=== PATIENT | male | born 1950 | race Caucasian/White ===

== ENCOUNTER 2016-04-11 09:50 | Outpatient (CLI) | payer MEDICARE ==
[~2016-04-11] VITALS: Ht 190.5 cm; Wt 105.5 kg
--- NOTE | ~2016-04-11 | HEMODYNAMI ---
PATIENT:JOSÉ MIGUEL SMITH MEDICAL RECORD: [id number] : 46 LOCATION:[facility] ADMISSION DATE: 04/11/16 Generatedon:04/11/201613:32 Patient name: JOSÉ MIGUEL SMITH Patient #: [id number] : 1950 Date of study: 04/11/2016 Page: Of Hemodynamic Procedure Report Patient Data Patient Demographics Procedure consent was obtained First Name: JOSÉ MIGUEL Gender: Male Last Name: LUIS : 1950 Patient #: [id number] Age: 65 year(s) Race: SSN: [id number] Additional ID: [id number] Contact details [address]: [address] [place] [address] State: [place] City: [place] Zip code: [address] Admission Admission Data Admission Date: 04/11/2016 Admission Time: 9:50 Arrival Date: 04/11/2016 Arrival Time: 12:00 Admit Source: Other Insurance Payor: Medicare Height (in.): 63 BSA: 2.07 (m2) Height (cm.): 160.02 BMI: 41.81 (kg/m2) Weight (lbs.): 236 Weight (kg.): 107.05 Lab Results Lab Result Date: 04/11/2016 Lab Result Time: 0:00 Biochemistry Name Units Result Min Max BUN mg/dl 19 --(----)*- 7 18 Creatinine mg/dl 0.9 --(-*--)-- 0.6 1.3 CBC Name Units Result Min Max Hemoglobin g/dl 14.8 --(-*--)-- 13.5 17.5 Procedure Procedure Types Cath Procedure Diagnostic Procedure LHC LHC w/Coronaries w/Grafts PCI Procedure Coronary Stent Initial Miscellaneous Procedures Moderate Sedation up to 15 minutes Procedure Description Procedure Date Procedure Date: 04/11/2016 Procedure Start Time: 13:10 Procedure End Time: 13:29 Procedure Staff Name Function Shelby Jacobs RT Monitor Rajiv Herrera RT Scrub Ally Stout RN Nurse Sander Tinajero MD Performing Physician Frida Simmons RT Monitor Procedure Data Cath Procedure Fluoroscopy Diagnostic fluoroscopy Total fluoroscopy Time: 5 time: 5 min min Diagnostic fluoroscopy Total fluoroscopy dose: 951 dose: 951 mGy mGy Contrast Material Contrast Material Type Amount (ml) Isovue 300 155 Entry Location Entry Primary Successful Side Size Upsize Upsize Entry Closure Succes sful Closure Location (Fr) 1 (Fr) 2 (Fr) Remarks Device Remarks Femoral Right 5 Fr 6 Fr Vascade artery Short Closure System Estimated blood loss: 10 ml Diagnostic catheters Device Type Used For End Catheter Placement Cordis 5Fr Pigtail LV Angiography Catheter (MP) Cordis 5Fr JL 4.0 Left Coronary Catheter (MP) Angiography Cordis 5Fr 3DRC Catheter Right Coronary (MP) Angiography Cordis Infinity 5Fr AR 2 Multi-vessel MOD catheter Angiography Procedure Complications No complications Procedure Medications Medication Administration Route Dosage Oxygen NC 2 l/min Lidocaine 2% added to field 20 Heparin Flush Bag added to field 2 bags (1000units/500ml NS) 0.9% NaCl I.V. 100 ml/hr Versed I.V. 1 mg Fentanyl I.V. 50 mcg Versed I.V. 1 mg Fentanyl I.V. 50 mcg Versed I.V. 1 mg Fentanyl I.V. 50 mcg Heparin Bolus I.V. 4000 units Integrilin (Bolus I.V. 9.5 ml 2mg/ml) Plavix P.O. 600 mg Hemodynamics Rest BSA: 2.07 (m2) HGB: 14.8 (g/dl) O2 Consumption: Estimated: 229.15 (ml/min) O2 Co nsumption indexed: Estimated:110.7 (ml/min/m) Heart Rate: 55 (bpm) Pressure Samples Time Site Value (mmHg) Purpose Heart Use Rate(bpm) 13:12 LV 49/22,26 Snapshot 85 Snapshots Pre Cath Intra NCS Post Cath Vital Signs Time Heart Resp SPO2 etCO2 KG1yyrg NIBP (mmHg) Rhythm Pain Sedation Rate (ipm) (%) (mmHg) (mmHg) Status Level (bpm) 12:52:16 55 17 100 0 0 154/79(130) NSR 0 (11) 10(A) , No pain 12:56:30 68 15 94 0 0 123/76(103) NSR 0 (11) 10(A) , No pain 13:00:44 72 15 96 0 0 123/69(95) NSR 0 (11) 10(A) , No pain 13:04:58 73 16 97 0 0 121/69(98) NSR 0 (11) 10(A) , No pain 13:09:10 74 16 96 0 0 124/71(106) NSR 0 (11) 9(A) , No pain 13:13:18 74 15 97 0 0 129/77(96) NSR 0 (11) 9(A) , No pain 13:17:26 84 15 97 0 0 131/80(106) NSR 0 (11) 9(A) , No pain 13:21:40 84 15 96 0 0 121/71(98) NSR 0 (11) 9(A) , No pain 13:25:47 87 15 97 0 0 118/70(99) NSR 0 (11) 10(A) , No pain 13:29:39 88 16 97 0 0 127/78(107) NSR 0 (11) 10(A) , No pain Medications Time Medication Route Dose Verified Delivered Reason Notes Effectiveness by by 12:50:40 Oxygen NC 2 Sander Buffie used for l/min Lior Stout RN procedure 12:50:45 Lidocaine 2% added 20ml Sander Buffie used for to vial Lior Stout RN procedure field 12:50:50 Heparin Flush added 2 Sander Buffie used for Bag to bags Lior Stout RN procedure (1000units/500ml field NS) 12:50:59 0.9% NaCl I.V. 100 Sander Buffie Per physician ml/hr Lior Stout RN 13:00:09 Versed I.V. 1 mg Sander Buffie for sedation Lior Stout RN 13:00:14 Fentanyl I.V. 50 Sander Buffie for sedation mcg Lior Stout RN 13:08:16 Versed I.V. 1 mg Sander Buffie for sedation Lior Stout RN 13:08:19 Fentanyl I.V. 50 Sander Buffie for sedation mcg Lior Stout RN 13:16:38 Versed I.V. 1 mg Sander Buffie for sedation Lior Stout RN 13:16:42 Fentanyl I.V. 50 Sander Buffie for sedation mcg Lior Stout RN 13:22:00 Heparin Bolus I.V. 4000 Sander Canales for verifi ed units Lior Stout RN anticoagulation with dr tinajero 13:23:13 Integrilin I.V. 9.5 Sander Canales for (Bolus 2mg/ml) ml Lior Stout RN antiplatelet therapy 13:28:32 Plavix P.O. 600 Sander rivera mg Lior Stout RN antiplatelet therapy Procedure Log Time Note 12:30:44 ACC Patient presents with Stable Angina CCS Anginal Class 2--Slight limitation of ordinary activity. 12:30:46 Diagnostic Cath status Elective 12:30:48 Rajiv Herrera RT(R) sent for patient. Start room use. 12:34:37 Time tracking: Regular hours 12:34:47 Plan of Care:Hemodynamics will remain stable., Cardiac rhythm will remain stable., Comfort level will be maintained., Respiratory function will remain adequate., Patient/ family verbilizes understanding of procedure., Procedure tolerated without complication., Recovers from procedure without complications.. 12:37:56 Informed consent obtained and on chart 12:38:08 Admit Source: Other 12:38:56 Arrival Date: 04/11/2016 12:00:00 PM 12:39:18 Insurance Payor : Medicare 12:39:27 Patient Height : 63 inches 12:39:32 Patient Weight : 236 lbs 12:43:48 Patient received from Outpatients to CCL 1 Alert and oriented. Tansferred to table in Supine position. 12:43:50 Correct patient and procedure confirmed by team. 12:43:50 Warm blankets applied, and goldy hugger turned on for patient comfort. 12:43:51 ECG and BP/O2 sat monitors applied to patient. 12:50:40 Oxygen 2 l/min NC was given by Ally Stout RN; used for procedure; 12:50:45 Lidocaine 2% 20ml vial added to field was given by Ally Stout RN; used for procedure; 12:50:50 Heparin Flush Bag (1000units/500ml NS) 2 bags added to field was given by Ally Stout RN; used for procedure; 12:50:59 0.9% NaCl 100 ml/hr I.V. was given by Ally Stout RN; Per physician; 12:51:03 Vital chart was started 12:52:41 Baseline sample Acquired. 12:52:45 Rhythm: sinus rhythm 12:52:48 Full Disclosure recording started 12:52:56 H&P Date Dictated: 04/10/2016 Within 30 days and on chart., H&P Addendum completed by physician on day of procedure. (MUST COMPLETE FOR ALL OUTPATIENTS). 12:52:57 Pre-procedure instructions explained to patient. 12:52:58 Pre-procedure instructions explained to patient. 12:52:59 Family in waiting room. 12:53:00 Patient NPO since Midnight. 12:53:29 Is the patient allergic to Iodine/contrast media? No. 12:53:31 Was the patient premedicated? No 12:53:33 Is patient on blood thinner?No 12:53:38 Patient diabetic? No. 12:53:41 Previous problem with sedation/anesthesia? No \ 12:53:43 Snore? No 12:53:44 Sleep apnea? No 12:53:45 Deviated septum? No 12:53:46 Opens mouth fully? Yes 12:53:47 Sticks out tongue? Yes 12:53:49 Airway obstruction? No ? 12:53:55 Dentures? Yes in tight 12:54:00 Pre procedure: right dorsailis pedis pulse 1+ Palpable, but thready & weak; easily obliterated 12:54:06 Patient pain scale 3/10 ?. 12:54:12 IV patent on arrival in left forearm with 0.9% NaCl at [facility]. 12:56:12 Lab Result : Hemoglobin 14.8 g/dl 12:56:12 Lab Result : Creatinine 0.9 mg/dl 12:56:12 Lab Result : BUN 19 mg/dl 12:56:16 Lab results completed and on chart. 12:56:19 Right groin area was prepped with chlora-prep and draped in sterile fashion 12:56:20 Sharps counted by scrub and verified by R.N. 12:56:20 Alarms reviewed by R. N. 12:56:21 Physician arrived 12:56:22 Final Timeout: patient, procedure, and site verified with staff and physician. All members of the team are in agreement. 12:56:22 --------ALL STOP TIME OUT------ 12:56:24 Right groin site verified by team. 12:56:27 Physical assessment completed. ASA score P 2 - A patient with mild systemic disease as per Sander Tinajero MD. 12:56:30 Sedation plan: IV Moderate Sedation Versed, Fentanyl 12:56:34 Use device set Femoral Dx 12:56:36 Cardinal Cath Pack opened to sterile field. 12:56:36 Bag Decanter opened to sterile field. 12:56:36 Acist Syringe opened to sterile field. 12:56:37 Terumo 5Fr [place] Sheath opened to sterile field. 12:56:38 St Gera 260cm J .035 wire opened to sterile field. 12:56:39 Cordis Infinity 5Fr Multipack catheter opened to sterile field. 12:56:39 Acist Manifold opened to sterile field. 12:56:39 Acist Hand Control opened to sterile field. 12:56:40 Tegaderm 4 x 4 opened to sterile field. 13:00:09 Versed 1 mg I.V. was given by Ally Stout RN; for sedation; 13:00:14 Fentanyl 50 mcg I.V. was given by Alyl Stout RN; for sedation; 13:08:16 Versed 1 mg I.V. was given by Ally Stout RN; for sedation; 13:08:19 Fentanyl 50 mcg I.V. was given by Ally Stout RN; for sedation; 13:10:37 Procedure started. 13:10:41 Local anesthetic to right femoral artery with Lidocaine 2% by Sander Tinajero MD.INITIAL ACCESS ONLY 13:10:49 A 5 Fr sheath was inserted into the Right Femoral artery 13:11:13 A Cordis 5Fr Pigtail Catheter (MP) was advanced over the wire and used for LV Angiography. 13:12:03 LV hemodynamics recorded. 13:12:04 LV gram done using LOW 13:12:10 Injector settings: Ml/sec: 5, Volume: 15, 13:12:15 EF : 55 % 13:12:19 Catheter removed. 13:12:23 A Cordis 5Fr JL 4.0 Catheter (MP) was advanced over the wire and used for Left Coronary Angiography. 13:13:33 LCA angiography performed. 13:13:36 Injector settings: Ml/sec: 3, Volume: 6, 13:13:38 Catheter removed. 13:13:42 A Cordis 5Fr 3DRC Catheter (MP) was advanced over the wire and used for Right Coronary Angiography. 13:13:46 RCA angiography performed. 13:13:48 Injector settings: Ml/sec: 3, Volume: 6, 13:13:49 TORREZ angiography performed. 13:13:50 Catheter removed. 13:13:52 Proceeding to intervention. 13:14:10 Fourandhalf BasixCompak Inflation Kit opened to sterile field. 13:14:10 Terumo 6Fr [place] Sheath opened to sterile field. 13:14:11 Lombardi Whisper J 300cm 0.014 guide wire opened to sterile field. 13:16:38 Versed 1 mg I.V. was given by Ally Stout RN; for sedation; 13:16:42 Fentanyl 50 mcg I.V. was given by Ally Stout RN; for sedation; 13:16:56 A Cordis Infinity 5Fr AR 2 MOD catheter was advanced over the wire and used for Multi-vessel Angiography. 13:17:14 SVG to Ramus angiography performed. 13:17:47 SVG to RCA angiography performed. 13:19:58 SVG to Diag angiography performed. 13:20:27 Catheter removed. 13:21:14 Sheath upsized to a 6 Fr Short. 13:21:41 6 Fr ? guide catheter was inserted over the wire 13:22:00 Heparin Bolus 4000 units I.V. was given by Ally Stout RN; for anticoagulation; verified with dr tinajero 13:22:32 Cordis 6FR XBLAD 3.5 guide catheter opened to sterile field. 13:22:54 Whisper wire advanced. 13:23:13 Integrilin (Bolus 2mg/ml) 9.5 ml I.V. was given by Ally Stout RN; for antiplatelet therapy; 13:23:19 Wire advanced across lesion. 13:27:03 Inflation Number: 1 A Medtronic Resolute 3.0 X 22 stent was prepped and advanced across the Prox CX. The stent was deployed at 17 MATT for 0:10 (min:sec). 13:27:08 Vascade 6/7 Fr Closure Device opened to sterile field. 13:27:16 Wire removed. 13:27:17 Guide catheter removed. 13:27:30 Sheath removed intact; hemostasis achieved with Vascade Closure System to the Right Femoral artery. 13:27:32 Procedure ended.(Physican Out) 13:27:46 Fluoroscopy time 05.00 minutes. 13:27:56 Fluoroscopy dose: 951 mGy 13:27:56 Flurop Dose total: 951 13:28:01 Contrast amount:Isovue 300 155ml. 13:28:02 Sharps counted by scrub and verified by R.N. 13:28:07 Insertion/operative site no bleeding no hematoma. 13:28:10 Post Procedure Pulses reassessed and unchanged 13:28:18 Post procedure rhythm: unchanged. 13:28:21 Estimated blood loss: 10 ml 13:28:23 Post procedure instruction explained to patient.Patient verbalizes understanding. 13:28:32 Plavix 600 mg P.O. was given by Ally Stout RN; for antiplatelet therapy; 13:28:47 Procedure type changed to Cath procedure, Diagnostic procedure, LHC, LHC w/Coronaries w/Grafts, PCI procedure, Coronary Stent Initial, Miscellaneous Procedures, Moderate Sedation up to 15 minutes 13:28:50 Procedure and supply charges have been captured, reviewed, submitted and are correct. 13:29:15 Procedure Complication : No complications 13:29:18 See physician's report for complete and final results. 13:29:18 Vital chart was stopped 13:29:21 Report given to Outpatients. 13:29:25 Patient transfered to Outpatients with Stretcher. 13:29:28 Full Disclosure recording stopped 13:29:28 Procedure ended. 13:29:31 End room use (Document Last) 13:30:45 ACC-PCI Only Patient was given prescriptions, or instructed by Sander Tinajero MD to start/continue the following medications upon discharge: Plavix Intervention Summary Intervention Notes Time ActionType Lesion and Equipment Action# Pressure Duration Attributes Used 13:27:03 Place stent Prox CX Medtronic 1 17 00:10 Resolute 3.0 X 22 stent Device Usage Item Name Manufacture Quantity Catalog Hospital Part Current Minima l Lot# / Number Charge Number Stock Stock Serial# Code [facility] 1 [id number] 478680 070305 157558 20 Syringe Medical Systems Inc Bag Microtek 1 2002S 134662 82412 864281 5 Geek[employer] Medline Cardinal 1 [id number] 491494 70601 683643 5 ADMETA Terumo 5Fr Terumo 1 ITH360 825037 907894 110264 [address] Gera 1 762616 077702 130222 327453 30 260cm J .035 wire Acist Hand Acist 1 53621 486177 097713 835545 5 Control Medical Systems Inc Acist Acist 1 36766 621556 560480 190649 5 Manifold Medical Systems Inc Cordis Cardinal 1 [id number] 842933 68587 485801 30 Infinity Health 5Fr Multipack catheter Tegaderm 4 3M 1 1626W 291358 846882 946816 5 x 4 Cordis 5Fr Cardinal 1 732144 5 Pigtail Health Catheter (MP) Cordis 5Fr Cardinal 1 120959 5 JL 4.0 Health Catheter (MP) Cordis 5Fr Cardinal 1 527277 5 3DRC Health Catheter (MP) Terumo 6Fr Terumo 1 QME279 662264 718348 889102 40 [place] Sheath [facility] 1 [id number] 389416 064686 515569 15 BasixCompak Medical Inflation Kit Lombardi Lombardi 1 [id number] 496912 922058 476220 5 Whisper J Vascular 300cm 0.014 guide wire Cordis Cardinal 1 [id number] 008088 115968 810102 20 Infinity Health 5Fr AR 2 MOD catheter Cordis 6FR Cardinal 1 [id number] 074172 642664 238713 10 XBLAD 3.5 Health guide catheter Medtronic Medtronic 1 [id number] 692726 102985 8 [id number] Resolute 3.0 X 22 stent Vascade 6/7 Cardiva 1 [id number] 927104 651501 126081 5 Fr Closure Medical, Device Inc. Signature Audit Early Stage Time Signature Unsigned Intra-Procedure 04/11/2016 Frida Simmons 1:32:39 PM RT(R) Signatures Monitor : Shelby Jacobs RT Signature : Date : Time : Monitor : Frida Simmons Signature : RT Date : Time : [address] [address] [place] [address]
[2016-04-11] MEDS ORDERED: NEURONTIN 300300 MG PO (10:20)
[2016-04-11] MEDS ORDERED: HYDROCODON-ACE1 EAC7 PO (10:20)
[2016-04-11] MEDS ORDERED: ZOCOR40 MG PO (10:20)
[2016-04-11] MEDS ORDERED: BUSPAR10 MG PO (10:21)
[2016-04-11] MEDS ORDERED: ZESTORETIC 10/11 TAB PO (10:22)
[2016-04-11] MEDS ORDERED: OMEPRAZOLE40 MG PO (10:23)
[2016-04-11] MEDS ORDERED: COREG6.25 MG PO (10:23)
[2016-04-11 10:31] VITALS: BP 145/67; Ht 190.5 cm; Wt 105.5 kg
[2016-04-11 10:36] LABS: BASOPHILS 0.6 % (0.0-2.0); EOSINOPHILS 2.7 % (0-7); HEMATOCRIT 45.1 % (42.0-54.0); HEMOGLOBIN 14.8 g/dL (13.5-17.5); IMMATURE GRANULOCYTES 0.2 % (0-5); LYMPHOCYTES 28.7 % (15-50); MCH 28.4 pg (26.0-34.0); MCHC 32.8 g/dL (31.0-37.0); MCV 86.6 fL (80.0-100.0); MONOCYTES 10.4 % (2-11); NEUTROPHILS 57.4 % (40-80); PLATELET COUNT 248 10x3/uL (130-400); RBC 5.21 10x6/uL (4.20-6.10); RDW 14.2 % (11.5-14.5); WBC 8.6 10x3/uL (4.8-10.8)
[2016-04-11 11:14] LABS: CALC OSMOLALITY 283 mosm/kg (275-300); CALCIUM 9.1 mg/dL (8.5-10.1); CARBON DIOXIDE 29.9 mmol/L (21.0-32.0); CHLORIDE - SERUM 104 mmol/L (98-107); CREATININE - SERUM 0.9 mg/dL (0.6-1.3); GLUCOSE 121 mg/dL (74-106); POTASSIUM - SERUM 4.1 mmol/L (3.5-5.1); SODIUM 141 mmol/L (136-145); UREA NITROGEN 19 mg/dL (7-18); eGFR NON AFRICAN AMERICAN 89 mL/min (90-120)
[2016-04-11] MEDS ORDERED: PLAVIX75 MG PO (13:53)
[2016-04-11] MEDS ORDERED: BAYER CHEWABLE81 MG PO (13:53)
--- NOTE | 2016-04-11 14:04 | NUR ---
HR 78 CHEST PAIN DENIED BP 139/76 6 FR VASCADE R/GROIN CDI NO BLEEDING NO HEMATOMA NOTED. INSTRUCTED PATIENT TO KEEP HEAD FLAT ON PILLOW WITH RLE STRAIGHT
--- NOTE | 2016-04-11 14:30 | NUR ---
1430 RESTING QUIETLY WITH EYES CLOSED VSS WITH NO DISTRESS NOTED. 6 FR VASCADE R/GROIN CDI NO BLEEDING NO HEMATOMA NOTED.
--- NOTE | 2016-04-11 14:55 | NUR ---
NO CHANGE IN ASSESSMENT VSS WITH R/GROIN CDI FAMILY AT SIDE
--- NOTE | 2016-04-11 15:39 | NUR ---
RESTING QUIELTY WITH EYES CLOSED NO DISTRESS NOTED 6 FR VASCADE R/GROIN CDI NO BLEEDING NO HEMATOMA NOTED
--- NOTE | 2016-04-11 16:28 | NUR ---
6 FR VASCADE R/GROIN CDI NO BLEEDING NO HEMATOMA NOTED. VSS
--- NOTE | 2016-04-11 17:09 | NUR ---
REPOSITIONED TO SITTING WITH HOB UP 45 DEGREES CHEST PAIN IS DENIED WITH VSS. 6 FR VASCADE R/GROIN CDI NO BLEEDING NO HEMATOMA NOTED. PIV REMOVED FROM LEFT ARM WITH DRESSING APPLIED. PATIENT UP TO GET DRESSED FOR DISCHARGE HOME
--- NOTE | 2016-04-11 17:20 | NUR ---
VERBAL AND WRITTEN DISCHARGE GONE OVER WITH PATIENT AND BOTH VERBALIZED UNDERSTANDING. CHEST PAIN IS DENIED. R/GROIN CDI NO BLEEDING NO HEMATOMA NOTED. LEFT VIA WC TO PARKING FOR TRANSPORT HOME
--- NOTE | 2016-04-25 08:46 | OP ---
PATIENT NAME: JOSÉ MIGUEL SMITH MEDICAL RECORD: [id number] :46 LOCATION:D.CAT ADMISSION DATE: SURGEON: VICTORIANO PAYTON MD DATE OF OPERATION: 04/11/2016 PROCEDURES: 1. PTCA stent left circumflex. 2. Left heart catheterization. 3. Selective coronary angiography. 4. Vein graft angiography. 5. Left ventriculogram. INDICATION: Angina and coronary artery disease. PROCEDURE IN DETAIL: After informed consent was obtained and after detailed explanation of risks, benefits as well as alternative therapies, the patient elected to proceed with angiogram and angioplasty. The right femoral area was prepped and draped in normal sterile fashion. The right femoral artery was cannulated via modified Seldinger technique with placement of 6-[place] sheath. All catheters exchanged through this sheath. FINDINGS: The left ventriculogram was performed in standard 30-degree LOW view, reveals preserved ejection fraction at 55%. SELECTIVE CORONARY ANGIOGRAPHY: 1. Left main showed no significant angiographic disease. 2. Left anterior descending is totally occluded in the proximal vessel. 3. Vein graft to the LAD diagonal is widely patent. 4. Vein graft to the LAD itself is widely patent. 5. Left circumflex has a previously placed stent proximally with up to 90% in-stent restenosis, first obtuse marginal was totally occluded. The AV groove stent feeds the second obtuse marginal territory. 6. Vein graft to the first obtuse marginal was patent; however, there is an 80% to 90% stenosis in this vein graft. 7. Right coronary is totally occluded. 8. Vein graft to the right coronary is widely patent. PTCA STENT OF THE [place] CIRCUMFLEX: The [place] circumflex was addressed with a 3.0 x 22 mm Resolute stent. Result was 0% residual stenosis. OVERALL IMPRESSION: Successful percutaneous transluminal coronary angioplasty stent of the [place] left circumflex feeding the second obtuse marginal area. We will bring him back next week for PTCA stent of the vein graft to the first obtuse marginal area. TRANSINT:[id number] Voice Confirmation ID: [id number] DOCUMENT ID: [id number] OPERATIVE REPORT [id number] LUISJOSÉ MIGUEL VICTORIANO PAYTON MD at 0846 CC: [id number] DICTATION DATE: 04/11/16 1329 CREDIT CARD INTERVIEWER: 04/11/16 1517 DEP CLI 04/11/16 [facility] [address] [place] [address]
== END 2016-04-11 17:22 | disposition home or self-care (01) ==
LOC: D.CATH 09:50
PROVIDERS: Internal Medicine Interventional Cardiology
DX: I25.119 Atherosclerotic heart disease of native coronary artery with unspecified angina pectoris (principal); I25.719 Atherosclerosis of autologous vein coronary artery bypass graft(s) with unspecified angina pectoris; T82.855A Stenosis of coronary artery stent, initial encounter
CPT/HCPCS: 93459; C9600

== ENCOUNTER 2016-04-15 08:39 | Outpatient (CLI) | payer MEDICARE ==
[~2016-04-15] VITALS: Ht 190.5 cm; Wt 105.5 kg
--- NOTE | ~2016-04-15 | HEMODYNAMI ---
PATIENT:JOSÉ MIGUEL SMITH MEDICAL RECORD: [id number] : 46 [id number] ADMISSION DATE: 04/15/16 Generatedon:04/15/201611:06 Patient name: JOSÉ MIGUEL SMITH Patient #: [id number] : 1950 Date of study: 04/15/2016 Page: Of Hemodynamic Procedure Report Patient Data Patient Demographics Procedure consent was obtained First Name: JOSÉ MIGUEL Gender: Male Last Name: LUIS : 1950 Patient #: [id number] Age: 65 year(s) Race: SSN: [id number] Additional ID: [id number] Contact details [address]: [address] [place] [address] State: [place] City: [place] Zip code: [address] Admission Admission Data Admission Date: 04/15/2016 Admission Time: 8:39 Lab Results Lab Result Date: 04/15/2016 Lab Result Time: 0:00 Biochemistry Name Units Result Min Max BUN mg/dl 15 --(--*-)-- 7 18 Creatinine mg/dl 1.1 --(--*-)-- 0.6 1.3 CBC Name Units Result Min Max Hemoglobin g/dl 15.5 --(-*--)-- 13.5 17.5 Procedure Procedure Types Cath Procedure PCI Procedure Coronary Stent Initial Procedure Description Procedure Date Procedure Date: 04/15/2016 Procedure Start Time: 10:47 Procedure End Time: 10:58 Procedure Staff Name Function Sander Tinajero MD Performing Physician Shelby Jacobs RT Scrub Ally Stout RN Nurse Alen Crowe RT Parking Lot Supervisor Rajiv Herrera RT Monitor Procedure Data Cath Procedure Fluoroscopy Diagnostic fluoroscopy Total fluoroscopy Time: 2.9 time: 2.9 min min Diagnostic fluoroscopy Total fluoroscopy dose: 322 dose: 322 mGy mGy Contrast Material Contrast Material Type Amount (ml) Isovue 370 50 Entry Location Entry Primary Successful Side Size Upsize Upsize Entry Closure Succes sful Closure Location (Fr) 1 (Fr) 2 (Fr) Remarks Device Remarks Femoral Right 6 Fr Exoseal artery Short Procedure Complications No complications Procedure Medications Medication Administration Route Dosage Oxygen NC 2 l/min Lidocaine 2% added to field 20 Heparin Flush Bag added to field 2 bags (1000units/500ml NS) 0.9% NaCl I.V. 100 ml/hr Versed I.V. 1 mg Fentanyl I.V. 50 mcg Versed I.V. 1 mg Fentanyl I.V. 50 mcg Heparin Bolus I.V. 4000 units Fentanyl I.V. 50 mcg Hemodynamics Rest HGB: 15.5 (g/dl) Heart Rate: 63 (bpm) Snapshots Pre Cath Intra NCS Post Cath Vital Signs Time Heart Resp SPO2 etCO2 DA3pais NIBP (mmHg) Rhythm Pain Sedation Rate (ipm) (%) (mmHg) (mmHg) Status Level (bpm) 10:30:12 58 16 96 0 0 140/67(113) NSR 0 (11) 10(A) , No pain 10:34:30 68 19 95 0 0 114/65(92) NSR 0 (11) 10(A) , No pain 10:38:42 71 17 94 0 0 117/71(96) NSR 0 (11) 10(A) , No pain 10:42:54 69 16 94 0 0 123/70(104) NSR 0 (11) 10(A) , No pain 10:47:07 73 15 94 0 0 114/66(97) NSR 0 (11) 9(A) , No pain 10:51:17 72 15 97 0 0 127/70(96) NSR 0 (11) 9(A) , No pain 10:55:33 80 16 94 0 0 123/68(102) NSR 0 (11) 9(A) , No pain 11:01:28 79 16 96 0 0 125/67(94) NSR 0 (11) 10(A) , No pain Medications Time Medication Route Dose Verified Delivered Reason Notes Effectiveness by by 10:33:04 Oxygen NC 2 Sander Buffie used for l/min Lior Stout leather patcher 10:33:12 Lidocaine 2% added 20ml Sander Buffie used for to vial Lior Stout leather patcher field 10:33:17 Heparin Flush added 2 Sander Buffie used for Bag to bags Lior Stout RN procedure (1000units/500ml field NS) 10:33:25 0.9% NaCl I.V. 100 Sander Buffie Per physician ml/hr Lior Stout RN 10:46:08 Versed I.V. 1 mg Sander Buffie for sedation Lior Stout RN 10:46:14 Fentanyl I.V. 50 Sander Buffie for sedation mcg Lior Stout RN 10:48:20 Versed I.V. 1 mg Sander Buffie for sedation Lior Stout RN 10:48:24 Fentanyl I.V. 50 Sander Buffie for sedation mcg Lior Stout RN 10:50:03 Heparin Bolus I.V. 4000 Sander Buffie for verifi ed units Lior Stout RN anticoagulation with dr tinajero 10:53:09 Fentanyl I.V. 50 Sander Buffie for sedation mcg Lior Stout RN Procedure Log Time Note 10:21:10 Alen CORNELL(R) sent for patient. Start room use. 10:21:11 Time tracking: Regular hours 10:21:14 Plan of Care:Hemodynamics will remain stable., Cardiac rhythm will remain stable., Comfort level will be maintained., Respiratory function will remain adequate., Patient/ family verbilizes understanding of procedure., Procedure tolerated without complication., Recovers from procedure without complications.. 10:23:54 Patient received from Outpatients to [facility] 1 Alert and oriented. Tansferred to table in Supine position. 10:23:55 Warm blankets applied, and goldy hugger turned on for patient comfort. 10:23:56 Correct patient and procedure confirmed by team. 10:23:57 Signed procedure consent form obtained from patient. 10:25:29 Procedure type changed to Cath procedure, PCI procedure, Coronary Stent Initial 10:28:59 Vital chart was started 10:30:18 Baseline sample Acquired. 10:30:18 Full Disclosure recording started 10:30:23 Rhythm: sinus rhythm 10:30:42 H&P Date Dictated: 04/15/2016 New H&P dictated by physician.. 10:32:32 Pre-procedure instructions explained to patient. 10:32:33 Pre-op teaching completed and patient verbalized understanding. 10:32:41 Family in patients room. 10:32:44 Patient NPO since Midnight. 10:32:52 Is the patient allergic to Iodine/contrast media? No. 10:32:54 Is patient on blood thinner?Yes 10:32:56 ACC The patient was administered the following blood thiners within the last 24 hours: ACCPlavix 10:32:58 Patient diabetic? No. 10:33:02 Previous problem with sedation/anesthesia? No ? 10:33:03 Snore? No 10:33:04 Oxygen 2 l/min NC was given by Ally Stout RN; used for procedure; 10:33:06 Sleep apnea? No 10:33:12 Lidocaine 2% 20ml vial added to field was given by Ally Stout RN; used for procedure; 10:33:13 Deviated septum? No 10:33:13 Opens mouth fully? Yes 10:33:14 Sticks out tongue? Yes 10:33:16 Airway obstruction? No ? 10:33:17 Heparin Flush Bag (1000units/500ml NS) 2 bags added to field was given by Ally Stout RN; used for procedure; 10:33:22 Dentures? Yes In 10:33:25 0.9% NaCl 100 ml/hr I.V. was given by lAly Stout RN; Per physician; 10:33:26 Pre procedure: right dorsailis pedis pulse 2+ Normal; easily identifiable; not easily obliterated 10:33:32 Patient pain scale 0/10 ?. 10:33:59 IV patent on arrival in left hand with 0.9% NaCl at 10ml/hr. 10:39:34 Lab Result : Creatinine 1.1 mg/dl 10:39:34 Lab Result : BUN 15 mg/dl 10:39:34 Lab Result : Hemoglobin 15.5 g/dl 10:39:40 Lab results completed and on chart. 10:39:45 Right groin area was prepped with chlora-prep and draped in sterile fashion 10:39:46 Alarms reviewed by R. N. 10:39:47 Sharps counted by scrub and verified by R.N. 10:39:47 --------ALL STOP TIME OUT------ 10:39:48 Final Timeout: patient, procedure, and site verified with staff and physician. All members of the team are in agreement. 10:39:50 Right groin site verified by team. 10:39:53 Physical assessment completed. ASA score P 2 - A patient with mild systemic disease as per Sander Tinajero MD. 10:39:59 Sedation plan: IV Moderate Sedation Versed, Fentanyl 10:41:19 Use device set Femoral PCI 10:42:02 Zero performed for pressure channel P1 10:46:08 Versed 1 mg I.V. was given by Ally Stout RN; for sedation; 10:46:14 Fentanyl 50 mcg I.V. was given by Ally Stout RN; for sedation; 10:47:34 Procedure started. 10:47:45 Local anesthetic to right femoral artery with Lidocaine 2% by Sander Tinajero MD.INITIAL ACCESS ONLY 10:47:55 A 6 Fr Short sheath was inserted into the Right Femoral artery 10:48:08 Acist Syringe opened to sterile field. 10:48:09 Acist Hand Control opened to sterile field. 10:48:09 Bag Decanter opened to sterile field. 10:48:10 Medline Cath Pack opened to sterile field. 10:48:10 Terumo 6Fr [place] Sheath opened to sterile field. 10:48:11 St Gera 260cm J .035 wire opened to sterile field. 10:48:11 Merit BasixCompak Inflation Kit opened to sterile field. 10:48:12 Acist Manifold opened to sterile field. 10:48:12 Tegaderm 4 x 4 opened to sterile field. 10:48:13 Lombardi Whisper J 300cm 0.014 guide wire opened to sterile field. 10:48:14 Cordis 6FR XBLAD 4.0 guide catheter opened to sterile field. 10:48:20 Versed 1 mg I.V. was given by Ally Stout RN; for sedation; 10:48:24 Fentanyl 50 mcg I.V. was given by Ally Stout RN; for sedation; 10:48:28 ACC Pre-intervention GORDON Flow is 3. 10:49:00 6 Fr XBLAD 4 guide catheter was inserted over the wire 10:50:03 Heparin Bolus 4000 units I.V. was given by Ally Stout RN; for anticoagulation; verified with dr tinajero 10:51:16 Guide catheter removed. 10:51:53 Medtronic Launcher 6Fr AR 2.0 guide catheter opened to sterile field. 10:52:07 6 Fr AR 2 guide catheter was inserted over the wire 10:53:09 Fentanyl 50 mcg I.V. was given by Ally Stout RN; for sedation; 10:53:13 ACC PCI Site: [facility] has 90% stenosis. 10:55:05 WHISPER wire advanced. 10:56:11 Inflation Number: 1 A Promus Premier OTW 2.25 x 16 stent was prepped and advanced across the Aorta Left -> Dist CX. The stent was deployed at 13 MATT for 0:08 (min:sec). 10:56:14 ACC Post-intervention GORDON Flow is 3. 10:56:15 Stent catheter was removed intact over wire. 10:56:15 Wire removed. 10:56:16 Guide catheter removed. 10:56:22 Cordis 6Fr Exoseal opened to sterile field. 10:56:32 Sheath removed intact; hemostasis achieved with Exoseal to the Right Femoral artery. 10:56:33 Procedure ended.(Physican Out) 10:56:42 Fluoroscopy time 02.90 minutes. 10:56:46 Flurop Dose total: 322 10:56:46 Fluoroscopy dose: 322 mGy 10:56:48 Sharps counted by scrub and verified by R.N. 10:57:09 Contrast amount:Isovue 370 50ml. 10:57:10 Insertion/operative site no bleeding no hematoma. 10:57:13 Post-op/insertion site Right Femoral artery dressed using a 4 x 4 and Tegaderm. 10:57:17 Post right femoral artery:stable 10:57:20 Post procedure rhythm: sinus rhythm 10:57:21 Post procedure instruction explained to patient.Patient verbalizes understanding. 10:57:59 Procedure and supply charges have been captured, reviewed, submitted and are correct. 10:58:03 Procedure Complication : No complications 10:58:07 Vital chart was stopped 10:58:07 See physician's report for complete and final results. 10:58:09 Report given to Pre/Post Procedure Room. 10:58:11 Patient transfered to Pre/Post Procedure Room with Stretcher. 10:58:18 Procedure ended. 10:58:18 Full Disclosure recording stopped 10:58:21 End room use (Document Last) Intervention Summary Intervention Notes Time ActionType Lesion and Equipment Action# Pressure Duration Attributes Used 10:56:11 Place stent Aorta Left Promus 1 13 00:08 -> Dist CX Premier OTW 2.25 x 16 stent Device Usage Item Name Manufacture Quantity Catalog Number Hospital Part Current Mini mal Lot# / Charge Number Stock Stock Serial# Code Acist Acist 1 48160 422044 646251 310898 20 Syringe Medical Systems Inc Acist Hand Acist 1 40571 671029 494393 302642 5 Control Medical Systems Inc Bag Microtek 1 2002S 741540 80368 122788 5 Decanter Medical Inc. Medline Cardinal 1 [id number] 254374 60816 406326 5 Cath Pack Health Terumo 6Fr Terumo 1 [id number] 711469 318259 825242 [address] [place] [address] St Gera 1 165166 200791 162545 842952 30 260cm J .035 wire Merit Merit 1 HL9270 890877 248653 588891 15 BasixCompak Medical Inflation Kit Acist Acist 1 11287 201583 198504 618868 5 Manifold Medical Systems Inc Tegaderm 4 3M 1 1626W 304912 972396 149712 5 x 4 Lombardi Lombardi 1 [id number] 035585 376641 085596 5 Whisper J Vascular 300cm 0.014 guide wire Cordis 6FR Cardinal 1 [id number] 760670 787323 398086 3 XBLAD 4.0 Health guide catheter Medtronic Medtronic 1 [id number] 716740 36299 841248 1 Launcher 6Fr AR 2.0 guide catheter Promus [place] 1 [id number] 469845 960393 5 [id number] Premier OTW Scientific 2.25 x 16 stent Cordis 6Fr Cardinal 1 EX600 317009 653433 724368 10 [facility] Virtual 3-D Display for Smartphones Signature Audit [place] Stage Time Signature Unsigned Intra-Procedure 04/15/2016 Rajiv Herrera 11:05:59 AM RT(R) Signatures Monitor : Rajiv Herrera RT Signature : Date : Time : [facility] [address] [facility] [place] [address]
[~2016-04-15 08:39] MED LIST: BAYER CHEWABLE81 MG PO; BUSPAR10 MG PO; COREG6.25 MG PO; HYDROCODON-ACE1 EAC7 PO; NEURONTIN 300300 MG PO; OMEPRAZOLE40 MG PO; PLAVIX75 MG PO; ZESTORETIC 10/11 TAB PO; ZOCOR40 MG PO
[2016-04-15 09:07] VITALS: BP 117/65; Ht 190.5 cm; Wt 105.5 kg
[2016-04-15 09:21] LABS: BASOPHILS 0.4 % (0.0-2.0); EOSINOPHILS 2.8 % (0-7); HEMATOCRIT 48.3 % (42.0-54.0); HEMOGLOBIN 15.5 g/dL (13.5-17.5); IMMATURE GRANULOCYTES 0.4 % (0-5); LYMPHOCYTES 24.9 % (15-50); MCH 28.1 pg (26.0-34.0); MCHC 32.1 g/dL (31.0-37.0); MCV 87.5 fL (80.0-100.0); NEUTROPHILS 63.5 % (40-80); PLATELET COUNT 258 10x3/uL (130-400); RBC 5.52 10x6/uL (4.20-6.10); RDW 14.4 % (11.5-14.5); WBC 10.9 10x3/uL (4.8-10.8)
[2016-04-15 09:30] LABS: ANION GAP 12.6 mmol/L (8-16); CALCIUM 8.8 mg/dL (8.5-10.1); CARBON DIOXIDE 30.6 mmol/L (21.0-32.0); CREATININE - SERUM 1.1 mg/dL (0.6-1.3); POTASSIUM - SERUM 4.2 mmol/L (3.5-5.1)
--- NOTE | 2016-04-15 12:09 | NUR ---
1130- RIGHT GROIN DRESSING CDI, NO HEMATOMA NOTED, DENIES CHEST PAIN
--- NOTE | 2016-04-15 12:11 | NUR ---
1200- RIGHT GROIN - NO CHANGES
--- NOTE | 2016-04-25 08:46 | OP ---
PATIENT NAME: JOSÉ MIGUEL SMITH MEDICAL RECORD: [id number] :46 LOCATION:D.CAT ADMISSION DATE: SURGEON: VICTORIANO PAYTON MD DATE OF OPERATION: 04/15/2016 PROCEDURES: 1. PTCA stent vein graft to the first obtuse marginal. 2. Selective coronary with vein graft angiography. INDICATION: Angina and coronary artery disease. PROCEDURE IN DETAIL: After informed consent was obtained and after detailed explanation of risks, benefits as well as alternative therapies, the patient elected to proceed with angiogram and angioplasty. The right femoral area was prepped and draped in normal sterile fashion. The right femoral artery was cannulated via modified Seldinger technique with placement of 6-[place] sheath. All catheters exchanged through the sheath. FINDINGS: The vein graft to the circumflex first obtuse marginal has a 90% stenosis distally, it was addressed with a 2.25 x 16 mm Promus stent taken to 13 atmospheres. Result was 0% residual stenosis. OVERALL IMPRESSION: Successful percutaneous transluminal coronary angioplasty stent of the vein graft to the left circumflex first obtuse marginal going from 90% initial stenosis to 0% residual. TRANSINT:[id number] Voice Confirmation ID: [id number] DOCUMENT ID: [id number] VICTORIANO PAYTON MD at 0846 CC: [id number] DICTATION DATE: 04/15/16 1058 REGISTRAR ASSISTANT: 04/15/16 1753 [facility] CLI 04/15/16 [place] [id number]
== END 2016-04-15 15:00 | disposition home or self-care (01) ==
LOC: D.CATH 08:39
PROVIDERS: Internal Medicine Interventional Cardiology
DX: I25.119 Atherosclerotic heart disease of native coronary artery with unspecified angina pectoris (principal); Z95.1 Presence of aortocoronary bypass graft

== ENCOUNTER 2016-11-26 23:59 | Inpatient (IN) | payer MEDICARE ==
--- NOTE | ~2016-11-26 | HEMODYNAMI ---
PATIENT:JOSÉ MIGUEL SMITH MEDICAL RECORD: [id number] : 46 LOCATION:[address] ADMISSION DATE: 11/27/16 Generatedon:11/27/201611:18 Patient name: JOSÉ MIGUEL SMITH Patient #: [id number] : 1950 Date of study: 11/27/2016 Page: Of Hemodynamic Procedure Report Patient Data Patient Demographics Procedure consent was obtained First Name: JOSÉ MIGUEL Gender: Male Last Name: LUIS : 1950 Patient #: [id number] Age: 66 year(s) Race: SSN: [id number] Additional ID: [id number] Contact details [address]: [address] [place] [address] State: [place] City: [place] Zip code: [address] Admission Admission Data Admission Date: 11/27/2016 Admission Time: 1:37 Room #: D.2125 Height (in.): 75 BSA: 2.31 (m2) Height (cm.): 190.5 BMI: 28.11 (kg/m2) Weight (lbs.): 224.87 Weight (kg.): 102 Lab Results Lab Result Date: 11/27/2016 Lab Result Time: 0:00 Biochemistry Name Units Result Min Max BUN mg/dl 15 --(--*-)-- 7 18 Creatinine mg/dl 1.1 --(--*-)-- 0.6 1.3 CBC Name Units Result Min Max Hemoglobin g/dl 15.5 --(-*--)-- 13.5 17.5 Procedure Procedure Types Cath Procedure Diagnostic Procedure LHC LHC w/Coronaries w/Grafts FFR/IVUS Intra-Coronary IVUS Initial Miscellaneous Procedures Moderate Sedation up to 45 minutes Procedure Description Procedure Date Procedure Date: 11/27/2016 Procedure Start Time: 10:32 Procedure End Time: 11:16 Procedure Staff Name Function Logan Gates MD Performing Physician Esther Freed RT Scrub Alen Crowe RT Scrub Jose E Camejo RN Nurse Keagan Beth RT Monitor Kai Rivero RN Contact Center Team Lead Procedure Data Cath Procedure Fluoroscopy Diagnostic fluoroscopy Total fluoroscopy Time: 9.1 time: 9.1 min min Diagnostic fluoroscopy Total fluoroscopy dose: dose: 1652 mGy 1652 mGy Contrast Material Contrast Material Type Amount (ml) Isovue 300 112 Entry Location Entry Primary Successful Side Size Upsize Upsize Entry Closure Succes sful Closure Location (Fr) 1 (Fr) 2 (Fr) Remarks Device Remarks Femoral Right 5 Fr 6 Fr Exoseal artery Short Estimated blood loss: 10 ml Diagnostic catheters Device Type Used For End Catheter Placement Cordis 5Fr JL 4.0 Procedure Catheter (MP) Diagnostic Infinity 5Fr Procedure AR MOD Catheter Diagnostic Infinity 5Fr Procedure LCB catheter Cordis 5Fr Pigtail Procedure Catheter (MP) Procedure Complications No complications Procedure Medications Medication Administration Route Dosage 0.9% NaCl I.V. 100 ml/hr Oxygen NC 2 l/min Heparin Flush Bag added to field 2 bags (1000units/500ml NS) Lidocaine 2% added to field 20 Versed I.V. 1 mg Fentanyl I.V. 50 mcg Versed I.V. 1 mg Fentanyl I.V. 50 mcg Heparin Bolus I.V. 58988 units Fentanyl I.V. 50 mcg Integrilin Drip I.V. drip 8 ml/hr (75mg/100ml) Hemodynamics Rest BSA: 2.31 (m2) HGB: 15.5 (g/dl) O2 Consumption: Estimated: 263.41 (ml/min) O2 Co nsumption indexed: Estimated:114.03 (ml/min/m) Heart Rate: 65 (bpm) Pressure Samples Time Site Value (mmHg) Purpose Heart Use Rate(bpm) 10:53 LV 135/-4,17 EDP 83 10:54 AO 139/69(101) Pullback 85 10:54 LV 137/3,21 Pullback 85 Gradients Valve Time Site 1 Site 2 Mean SEP/DFP Peak To Heart Use (mmHg) (sec/min) Peak Rate (mmHg) (bpm) Aortic 10:54 LV AO 0 6 0 85 137/3,21 139/69(101) Calculations Valve P-P Mean Valve Index Valve Source Name Gradient Area Flow (cm2) Aortic 0 0 0 0 Snapshots Pre Cath Intra NCS Post Cath Vital Signs Time Heart Resp SPO2 etCO2 [id number] NIBP (mmHg) Rhythm Pain Sedation Rate (ipm) (%) (mmHg) (mmHg) Status Level (bpm) 10:10:29 57 16 96 0 0 135/66(97) NSR 0 (11) 10(A) , No pain 10:15:50 60 16 96 0 0 124/61(88) NSR 0 (11) 10(A) , No pain 10:20:31 66 14 94 0 0 118/61(83) NSR 0 (11) 10(A) , No pain 10:25:13 69 16 95 0 0 108/53(92) NSR 0 (11) 10(A) , No pain 10:29:52 76 25 96 0 0 108/60(96) NSR 0 (11) 10(A) , No pain 10:34:31 77 14 94 0 0 108/68(96) NSR 0 (11) 9(A) , No pain 10:39:09 81 16 92 0 0 111/68(94) NSR 0 (11) 9(A) , No pain 10:43:50 84 14 94 0 0 125/66(91) NSR 0 (11) 9(A) , No pain 10:48:32 83 17 94 0 0 125/70(102) NSR 0 (11) 9(A) , No pain 10:53:15 85 16 95 0 0 130/69(96) NSR 0 (11) 10(A) , No pain 10:57:58 82 16 94 0 0 126/67(103) NSR 0 (11) 10(A) , No pain 11:02:38 87 16 96 0 0 119/73(94) NSR 0 (11) 10(A) , No pain 11:07:19 83 17 95 0 0 126/75(102) NSR 0 (11) 10(A) , No pain 11:12:00 82 15 94 0 0 113/71(93) NSR 0 (11) 10(A) , No pain 11:16:40 81 10 93 0 0 128/69(115) NSR 0 (11) 10(A) , No pain Medications Time Medication Route Dose Verified Delivered Reason Notes Effectiveness by by 10:08:02 0.9% NaCl I.V. 100 Jose E Jose E Per physician ml/hr Nell Camejo RN RN 10:08:21 Oxygen NC 2 Jose E Jose E Per physician l/min Nell Camejo RN RN 10:08:36 Heparin Flush added 2 bags Jose E Jose E used for Bag to Nell Camejo procedure (1000units/500ml RN RN NS) 10:08:53 Lidocaine 2% added 20ml Jose E Jose E for local to vial Lorigan Nell anesthetic RN RN 10:26:42 Versed I.V. 1 mg Jose E Jose E for sedation Nell Camejo RN RN 10:27:01 Fentanyl I.V. 50 mcg Jose E Jose E for sedation Nell Camejo RN RN 10:33:58 Versed I.V. 1 mg Jose E Jose E for sedation Nell Camejo RN RN 10:34:08 Fentanyl I.V. 50 mcg Jose E Jose E for sedation Nell Camejo RN RN 10:58:50 Heparin Bolus I.V. 10,000 Jose E Jose E for units Lorigan Nell anticoagulation RN RN 11:05:55 Fentanyl I.V. 50 mcg Jose E Jose E for sedation Nell Camejo RN RN 11:14:12 Integrilin Drip I.V. 8 Jose E Jose E for (75mg/100ml) drip ml/hr Nell Camejo antiplatelet RN RN therapy Procedure Log Time Note 9:40:55 Kai Rivero RN sent for patient. Start room use. 9:47:56 Time tracking: Regular hours 9:48:01 Plan of Care:Hemodynamics will remain stable., Cardiac rhythm will remain stable., Comfort level will be maintained., Respiratory function will remain adequate., Patient/ family verbilizes understanding of procedure., Procedure tolerated without complication., Recovers from procedure without complications.. 9:52:24 Patient received from PCU to CCL 1 Alert and oriented. Tansferred to table in Supine position. 9:52:26 Warm blankets applied, and goldy hugger turned on for patient comfort. 9:52:26 Correct patient and procedure confirmed by team. 9:52:28 Signed procedure consent form obtained from patient. 9:52:28 ECG and BP/O2 sat monitors applied to patient. 9:58:32 IV left forearm D/C'd due to infiltration. 9:59:26 Lab results completed and on chart. 10:00:01 Lab Result : BUN 15 mg/dl 10:00:01 Lab Result : Hemoglobin 15.5 g/dl 10:00:01 Lab Result : Creatinine 1.1 mg/dl 10:00:45 IV started by Kai davila hand with a 22 gauge IV catheter with 0.9% NaCl at [facility]. 10:01:01 Patient Weight : 224.87 lbs 10:01:18 Patient Height : 75 inches 10:08:02 0.9% NaCl 100 ml/hr I.V. was administered by Jose E Camejo RN; Per physician; 10:08:21 Oxygen 2 l/min NC was administered by Jose E Camejo RN; Per physician; 10:08:36 Heparin Flush Bag (1000units/500ml NS) 2 bags added to field was administered by Jose E Camejo RN; used for procedure; 10:08:53 Lidocaine 2% 20ml vial added to field was administered by Jose E Camejo RN; for local anesthetic; 10:09:21 Vital chart was started 10:09:23 Baseline sample Acquired. 10:09:26 Rhythm: sinus rhythm 10::28 Full Disclosure recording started 10:09:55 H&P Date Dictated: 11/27/2016 Within 30 days and on chart.. 10:09:58 Pre-procedure instructions explained to patient. 10:09:58 Pre-op teaching completed and patient verbalized understanding. 10:10:08 Family in patients room. 10:10:09 Patient NPO since Midnight. 10:10:12 Is the patient allergic to Iodine/contrast media? No. 10:10:13 Is patient on blood thinner?Yes 10:10:16 ACC The patient was administered the following blood thiners within the last 24 hours: ACCPlavix 10:10:19 Patient diabetic? No. 10:10:26 Previous problem with sedation/anesthesia? No ? 10:10:28 Snore? Yes 10:10:31 Sleep apnea? No 10:10:32 Deviated septum? No 10:10:33 Opens mouth fully? Yes 10:10:33 Sticks out tongue? Yes 10:10:38 Airway obstruction? Yes COPD 10:10:44 Dentures? Yes IN 10:10:48 Pre procedure: right dorsailis pedis pulse 1+ Palpable, but thready & weak; easily obliterated 10:10:50 Patient pain scale 0/10 ?. 10:10:57 Right groin area was prepped with chlora-prep and draped in sterile fashion 10:10:58 Alarms reviewed by R. N. 10:10:59 Sharps counted by scrub and verified by R.N. 10:11:04 Use device set Femoral Dx 10:11:05 Tegaderm 4 x 4 opened to sterile field. 10:11:07 Acist Hand Control opened to sterile field. 10:11:07 Acist Manifold opened to sterile field. 10:11:08 Acist Syringe opened to sterile field. 10:11:09 Bag Decanter opened to sterile field. 10:11:09 Medline Cath Pack opened to sterile field. 10:11:09 Terumo 5Fr [place] Sheath opened to sterile field. 10:11:10 St Gera 260cm J .035 wire opened to sterile field. 10:11:12 Diagnostic Infinity 5Fr Multipack catheter opened to sterile field. 10:15:32 22g IV Catheter opened to sterile field. 10:26:03 Physician arrived 10:26:03 --------ALL STOP TIME OUT------ 10:26:04 Final Timeout: patient, procedure, and site verified with staff and physician. All members of the team are in agreement. 10:26:06 Right groin site verified by team. 10:26:09 Physical assessment completed. ASA score P 2 - A patient with mild systemic disease as per Logan Gates MD. 10:26:12 Sedation plan: IV Moderate Sedation Versed, Fentanyl 10:26:42 Versed 1 mg I.V. was administered by Jose E Camejo RN; for sedation; 10:27:01 Fentanyl 50 mcg I.V. was administered by Jose E Camejo RN; for sedation; 10:27:37 Zero performed for pressure channel P1 10:32:46 Procedure started. 10:32:49 Local anesthetic to right femoral artery with Lidocaine 2% by Logan Gates MD.INITIAL ACCESS ONLY 10:33:00 A 5 Fr sheath was inserted into the Right Femoral artery 10:33:58 Versed 1 mg I.V. was administered by Jose E Camejo RN; for sedation; 10:34:08 Fentanyl 50 mcg I.V. was administered by Jose E Camejo RN; for sedation; 10:38:10 A Cordis 5Fr JL 4.0 Catheter (MP) was advanced over the wire and used for Procedure. 10:39:46 LCA angiography performed. 10:40:56 Catheter exchanged over wire. 10:41:55 A Diagnostic Infinity 5Fr AR MOD Catheter was advanced over the wire and used for Procedure. 10:42:22 RCA angiography performed. 10:42:44 SVG to RCA angiography performed. 10:44:23 Catheter exchanged over wire. 10:44:38 A Diagnostic Infinity 5Fr LCB catheter was advanced over the wire and used for Procedure. 10:46:33 SVG to Circ angiography performed. 10:48:21 SVG to LAD angiography performed. 10:51:25 Catheter removed. 10:51:32 Terumo 6Fr [place] Sheath opened to sterile field. 10:51:53 Lombardi BMW Henderson 2 J-tip 300cm 0.014 guide wir opened to sterile field. 10:51:59 [place] IVUS Catheter opened to sterile field. 10:53:28 A Cordis 5Fr Pigtail Catheter (MP) was advanced over the wire and used for Procedure. 10:53:32 LV hemodynamics recorded. 10:53:34 LV gram done using LOW 10:53:36 Injector settings: Ml/sec: 10, Volume: 20, 10:53:41 EF : 50 % 10:54:27 Merit BasixCompak Inflation Kit opened to sterile field. 10:54:28 High Pressure Extension Tubing (Gates) opened to sterile field. 10:54:44 Medtronic Launcher 6Fr AL 1.0 guide catheter opened to sterile field. 10:55:12 Catheter removed. 10:55:27 Sheath upsized to a 6 Fr Short. 10:55:50 6 Fr al 1 guide catheter was inserted over the wire 10:55:53 bmw wire advanced. 10:58:50 Heparin Bolus 10,000 units I.V. was administered by Jose E Camejo RN; for anticoagulation; 11:03:13 IVUS catheter advanced over wire. 11:03:28 IVUS pass to SVG to Circ lesion performed. 11:05:22 IVUS catheter removed over wire. 11:05:55 Fentanyl 50 mcg I.V. was administered by Jose E Camejo RN; for sedation; 11:08:14 Wire removed. 11:09:06 Guide catheter removed. 11:09:13 Cordis 6Fr Exoseal opened to sterile field. 11:09:21 Sheath removed intact; hemostasis achieved with Exoseal to the Right Femoral artery. 11:09:23 Procedure ended.(Physican Out) 11:14:10 Fluoroscopy time 09.10 minutes. 11:14:12 Integrilin Drip (75mg/100ml) 8 ml/hr I.V. drip was administered by Jose E Camejo RN; for antiplatelet therapy; 11::14 Flurop Dose total: 1652 11:14:14 Fluoroscopy dose: 1652 mGy 11:14:19 Contrast amount:Isovue 300 112ml. 11:14:20 Sharps counted by scrub and verified by R.N. 11:14:22 Insertion/operative site no bleeding no hematoma. 11:14:24 Post-op/insertion site Right Femoral artery dressed using a 4 x 4 and Tegaderm. 11:14:28 Post right femoral artery:stable, soft, clean and dry 11:14:31 Post Procedure Pulses reassessed and unchanged 11:14:34 Post-procedure physical assessment completed. ASA score P 2 - A patient with mild systemic disease as per Logan Gates MD. 11:14:40 Post procedure rhythm: unchanged. 11:14:44 Estimated blood loss: 10 ml 11:14:45 Post procedure instruction explained to patient.Patient verbalizes understanding. 11:14:49 Patient needs reinforcement of post procedure teaching. 11:15:20 Procedure type changed to Cath procedure, Diagnostic procedure, LHC, LHC w/Coronaries w/Grafts, FFR/IVUS, Intra-Coronary IVUS Initial, Miscellaneous Procedures, Moderate Sedation up to 45 minutes 11:16:20 Procedure and supply charges have been captured, reviewed, submitted and are correct. 11:16:22 Procedure Complication : No complications 11:16:24 Vital chart was stopped 11:16:25 See physician's report for complete and final results. 11:16:28 Report given to PCU. 11:16:30 Patient transfered to PCU with Stretcher. 11:16:32 Procedure ended. 11:16:32 Full Disclosure recording stopped 11:16:42 End room use (Document Last) Device Usage Item Name Manufacture Quantity Catalog Hospital Part Current Minimal Lot# / Number Charge Number Stock Stock Serial# Code Tegaderm 4 1 [id number] [id number] [id number] 5 x 4 Acist Hand Acist 1 77280 726087 563463 216607 5 Control Medical Systems Inc Acist Acist 1 52872 587476 097759 550281 5 Manifold Medical Systems Inc Acist Acist 1 63625 497278 360898 361650 20 Syringe Medical Systems Inc Bag Microtek 1 2002S 494234 63453 487131 5 Decanter Medical Inc. Medline Cardinal 1 [id number] 737173 68242 287818 5 Cath Pack Health Terumo 5Fr Terumo 1 [id number] 078030 308918 158498 [address] Gera 1 804942 563941 294955 242395 30 260cm J .035 wire Diagnostic Cardinal 1 [id number] 570883 18812 876243 30 Easy Social Shop 5Fr Multipack catheter 22g IV B. Mars 1 [id number] 925492 458297 241336 5 Catheter Cordis 5Fr Cardinal 1 555765 5 JL 4.0 Health Catheter (MP) Diagnostic Cardinal 1 [id number] 117361 180739 645583 15 Infinity Health 5Fr AR MOD Catheter Diagnostic Cardinal 1 [id number] 420493 378685 866650 5 Infinity Health 5Fr LCB catheter Terumo 6Fr Terumo 1 [id number] 647207 973422 579663 40 [place] Sheath Lombardi BMW Lombardi 1 [id number] 115617 621691 233961 5 [place] 2 Vascular J-tip 300cm 0.014 guide wir [place] 1 [id number] 540006 865791 312548 8 [place] IVUS Catheter Cordis 5Fr Cardinal 1 590755 5 Pigtail Health Catheter (MP) Merit Merit 1 [id number] 965930 515175 695968 15 BasixCompak Medical Inflation Kit High Merit 1 [id number] 965207 87081 192137 10 Pressure Medical Extension Tubing (Gates) Medtronic Medtronic 1 [id number] 492009 50702 154251 1 Launcher 6Fr AL 1.0 guide catheter Cordis 6Fr Cardinal 1 EX600 606561 388242 332762 10 [facility] [place] Signature Audit [place] Stage Time Signature Unsigned Intra-Procedure 11/27/2016 Keagan Beth 11:18:41 AM RT(R) Signatures Monitor : Keagan eBth RT Signature : Date : Time : [place] [id number] [place] [address]
--- NOTE | ~2016-11-26 | HEMODYNAMI ---
PATIENT:JOSÉ MIGUEL SMITH MEDICAL RECORD: [id number] : 46 LOCATION:[address] ADMISSION DATE: 11/27/16 Generatedon:11/28/201610:55 Patient name: JOSÉ MIGUEL SMITH Patient #: [id number] : 1950 Date of study: 11/28/2016 Page: Of Hemodynamic Procedure Report Patient Data Patient Demographics Procedure consent was obtained First Name: JOSÉ MIGUEL Gender: Male Last Name: LUIS : 1950 Patient #: [id number] Age: 66 year(s) Race: SSN: [id number] Additional ID: [id number] Contact details Address: [address] [place] [address] State: [place] City: [place] Zip code: [address] Admission Admission Data Admission Date: 11/27/2016 Admission Time: 1:37 Room #: D.2125 Height (in.): 75 BSA: 2.31 (m2) Height (cm.): 190.5 BMI: 28.11 (kg/m2) Weight (lbs.): 224.87 Weight (kg.): 102 Lab Results Lab Result Date: 11/27/2016 Lab Result Time: 0:00 Biochemistry Name Units Result Min Max BUN mg/dl 15 --(--*-)-- 7 18 Creatinine mg/dl 1.1 --(--*-)-- 0.6 1.3 CBC Name Units Result Min Max Hemoglobin g/dl 15.5 --(-*--)-- 13.5 17.5 Procedure Procedure Types Cath Procedure PCI Procedure SVG-BMS/GISELE Initial Miscellaneous Procedures Moderate Sedation up to 30 minutes Procedure Description Procedure Date Procedure Date: 11/28/2016 Procedure Start Time: 10:36 Procedure End Time: 10:55 Procedure Staff Name Function Sander Tinajero MD Performing Physician Esther Freed RT Scrub Alen Crowe RT Scrub Jose E Camejo RN Nurse Veronique Ma RT Monitor Procedure Data Cath Procedure Fluoroscopy Diagnostic fluoroscopy Total fluoroscopy Time: 4.3 time: 4.3 min min Diagnostic fluoroscopy Total fluoroscopy dose: 450 dose: 450 mGy mGy Contrast Material Contrast Material Type Amount (ml) Isovue 300 64 Entry Location Entry Primary Successful Side Size Upsize Upsize Entry Closure Succes sful Closure Location (Fr) 1 (Fr) 2 (Fr) Remarks Device Remarks Femoral Left 6 Fr Exoseal artery Short Estimated blood loss: 10 ml Procedure Complications No complications Procedure Medications Medication Administration Route Dosage 0.9% NaCl I.V. 100 ml/hr Oxygen NC 2 l/min Heparin Flush Bag added to field 2 bags (1000units/500ml NS) Lidocaine 2% added to field 20 Versed I.V. 1 mg Fentanyl I.V. 50 mcg Fentanyl I.V. 50 mcg Versed I.V. 1 mg Heparin Bolus I.V. 4000 units Integrilin (Bolus I.V. 9.5 ml 2mg/ml) Plavix P.O. 600 mg Hemodynamics Rest BSA: 2.31 (m2) HGB: 15.5 (g/dl) O2 Consumption: Estimated: 275.23 (ml/min) O2 Co nsumption indexed: Estimated:119.15 (ml/min/m) Heart Rate: 78 (bpm) Snapshots Pre Cath Intra NCS Post Cath Vital Signs Time Heart Resp SPO2 etCO2 AQ8izzf NIBP (mmHg) Rhythm Pain Sedation Rate (ipm) (%) (mmHg) (mmHg) Status Level (bpm) 10:29:01 77 24 95 0 0 171/84(145) NSR 0 (11) 10(A) , No pain 10:33:54 76 16 94 0 0 172/95(138) NSR 0 (11) 10(A) , No pain 10:38:34 85 14 89 0 0 137/85(113) NSR 0 (11) 10(A) , No pain 10:43:19 84 15 90 0 0 154/80(117) NSR 0 (11) 9(A) , No pain 10:48:06 85 16 96 0 0 147/89(115) NSR 0 (11) 10(A) , No pain 10:52:53 87 11 96 0 0 159/84(134) NSR 0 (11) 9(A) , No pain Medications Time Medication Route Dose Verified Delivered Reason Notes Effectiveness by by 10:31:23 0.9% NaCl I.V. 100 Jose E Jose E Per physician ml/hr Nell Camejo RN RN 10:31:35 Oxygen NC 2 Jose E Jose E Per physician l/min Nell Camejo RN RN 10:31:58 Heparin Flush added 2 Jose E Jose E used for Bag to bags Nell Camejo procedure (1000units/500ml field RN RN NS) 10:32:18 Lidocaine 2% added 20ml Jose E Jose E for local to vial Nell Camejo anesthetic field RN RN 10:32:30 Versed I.V. 1 mg Jose E Jose E for sedation Nell Camejo RN RN 10:32:43 Fentanyl I.V. 50 Jose E Jose E for sedation mcg Nell Camejo RN RN 10:38:17 Fentanyl I.V. 50 Jose E Jose E for sedation mcg Nell Camejo RN RN 10:38:29 Versed I.V. 1 mg Jose E Jose E for sedation Nell Camejo RN RN 10:42:46 Heparin Bolus I.V. 4000 Jose E Jose E for units Nell Camejo anticoagulation RN RN 10:43:06 Integrilin I.V. 9.5 Jose E Jose E for (Bolus 2mg/ml) ml Nell Camejo antiplatelet RN RN therapy 10:50:52 Plavix P.O. 600 Jose E Jose E for mg Nell Camejo antiplatelet RN RN therapy Procedure Log Time Note 10:07:11 Patient Height : 75 inches 10:07:11 Patient Weight : 224.87 lbs 10:07:45 Alen CORNELL(R) sent for patient. Start room use. 10:07:46 Time tracking: Regular hours 10:07:51 Plan of Care:Hemodynamics will remain stable., Cardiac rhythm will remain stable., Comfort level will be maintained., Respiratory function will remain adequate., Patient/ family verbilizes understanding of procedure., Procedure tolerated without complication., Recovers from procedure without complications.. 10:20:40 Patient received from PCU to CCL 1 Alert and oriented. Tansferred to table in Supine position. 10:20:41 Warm blankets applied, and goldy hugger turned on for patient comfort. 10:20:41 Correct patient and procedure confirmed by team. 10:20:43 Signed procedure consent form obtained from patient. 10:20:43 ECG and BP/O2 sat monitors applied to patient. 10:20:44 Full Disclosure recording started 10:27:59 Vital chart was started 10:28:00 Baseline sample Acquired. 10:28:07 Rhythm: sinus rhythm 10:28:13 H&P Date Dictated: 11/27/2016 Within 30 days and on chart.. 10:28:14 Pre-procedure instructions explained to patient. 10:28:15 Pre-op teaching completed and patient verbalized understanding. 10:28:17 Family in waiting room. 10:28:22 Patient NPO since Midnight. 10:28:24 Is the patient allergic to Iodine/contrast media? No. 10:28:25 Is patient on blood thinner?No 10:28:28 Patient diabetic? No. 10:28:30 Previous problem with sedation/anesthesia? No ? 10:28:30 Snore? Yes 10:28:32 Sleep apnea? No 10:28:33 Deviated septum? No 10:28:33 Opens mouth fully? Yes 10:28:34 Sticks out tongue? Yes 10:28:38 Airway obstruction? Yes COPD 10:28:43 Dentures? Yes IN 10:28:58 Pre procedure: left dorsailis pedis pulse 1+ Palpable, but thready & weak; easily obliterated 10:29:00 Patient pain scale 0/10 ?. 10:29:07 IV patent on arrival in right forearm with 0.9% NaCl at [facility]. 10:29:09 Lab results completed and on chart. 10:29:16 Left groin area was prepped with chlora-prep and draped in sterile fashion 10:29:17 Alarms reviewed by R. N. 10:29:17 Sharps counted by scrub and verified by R.N. 10:29:18 --------ALL STOP TIME OUT------ 10:29:19 Final Timeout: patient, procedure, and site verified with staff and physician. All members of the team are in agreement. 10:29:22 Left groin site verified by team. 10:29:25 Physical assessment completed. ASA score P 2 - A patient with mild systemic disease as per Sander Tinajero MD. 10:29:27 Sedation plan: IV Moderate Sedation Versed, Fentanyl 10:31:23 0.9% NaCl 100 ml/hr I.V. was administered by Jose E Camejo RN; Per physician; 10:31:35 Oxygen 2 l/min NC was administered by Jose E Camejo RN; Per physician; 10:31:58 Heparin Flush Bag (1000units/500ml NS) 2 bags added to field was administered by Jose E Camejo RN; used for procedure; 10:32:18 Lidocaine 2% 20ml vial added to field was administered by Jose E Camejo RN; for local anesthetic; 10:32:30 Versed 1 mg I.V. was administered by Jose E Camejo RN; for sedation; 10:32:43 Fentanyl 50 mcg I.V. was administered by Jose E Camejo RN; for sedation; 10:33:30 Use device set Femoral PCI 10:33:31 Acist Syringe opened to sterile field. 10:33:32 Acist Hand Control opened to sterile field. 10:33:32 Bag Decanter opened to sterile field. 10:33:32 Medline Cath Pack opened to sterile field. 10:33:33 Terumo 6Fr Show Low Sheath opened to sterile field. 10:33:33 St Gera 260cm J .035 wire opened to sterile field. 10:33:34 Merit BasixCompak Inflation Kit opened to sterile field. 10:33:34 Acist Manifold opened to sterile field. 10:33:35 Tegaderm 4 x 4 opened to sterile field. 10:33:47 Lombardi Whisper J 300cm 0.014 guide wire opened to sterile field. 10:33:47 Medtronic Launcher 6Fr AR 2.0 SH guide catheter opened to sterile field. 10:36:44 IV Extension Set opened to sterile field. 10:36:48 Procedure started. 10:36:51 Local anesthetic to left femerol artery with Lidocaine 2% by Sander Tinajero MD.INITIAL ACCESS ONLY 10:38:17 Fentanyl 50 mcg I.V. was administered by Jose E Camejo RN; for sedation; 10:38:29 Versed 1 mg I.V. was administered by Jose E Camejo RN; for sedation; 10:39:37 A 6 Fr Short sheath was inserted into the Left Femoral artery 10:39:49 6 Fr AR 2.0 SH guide catheter was inserted over the wire 10:42:00 WHISPER wire advanced. 10:42:46 Heparin Bolus 4000 units I.V. was administered by Jose E Camejo RN; for anticoagulation; 10:43:06 Integrilin (Bolus 2mg/ml) 9.5 ml I.V. was administered by Jose E Camejo RN; for antiplatelet therapy; 10:44:24 Inflation Number: 1 A [place] OTW 3.0 x 15 stent was prepped and advanced across the Aorta Left -> 1st Ob Marg2. The stent was deployed at 19 MATT for 0:08 (min:sec). 10:44:37 Inflation number: 2 The stent balloon was then re-inflated across the Aorta Left -> 1st Ob Marg2 to 17 MATT for 0:07 (min:sec). 10:44:57 Inflation number: 3 The stent balloon was then re-inflated across the Aorta Left -> 1st Ob Marg2 to 19 MATT for 0:04 (min:sec). 10:45:15 Stent catheter was removed intact over wire. 10:47:15 Inflation Number: 1 A Regan OTW 3.5 x 15 stent was prepped and advanced across the Aorta Left -> 1st Ob Marg1. The stent was deployed at 19 MATT for 0:09 (min:sec). 10:47:40 Stent catheter was removed intact over wire. 10:47:40 Wire removed. 10:47:41 Guide catheter removed. 10:47:48 Sheath removed intact; hemostasis achieved with Exoseal to the Left Femoral artery. 10:47:50 Procedure ended.(Physican Out) 10:48:02 Fluoroscopy time 04.30 minutes. 10:48:07 Flurop Dose total: 450 10:48:07 Fluoroscopy dose: 450 mGy 10:48:32 Contrast amount:Isovue 300 64ml. 10:48:36 Sharps counted by scrub and verified by R.N. 10:49:42 Insertion/operative site no bleeding no hematoma. 10:49:50 Post-op/insertion site Left Femoral artery dressed using a 4 x 4 and Tegaderm. 10:49:54 Post left femerol artery:stable, clean and dry 10:49:55 Post Procedure Pulses reassessed and unchanged 10:49:58 Post-procedure physical assessment completed. ASA score P 2 - A patient with mild systemic disease as per Sander Tinajero MD. 10:50:00 Post procedure rhythm: unchanged. 10:50:03 Estimated blood loss: 10 ml 10:50:04 Post procedure instruction explained to patient.Patient verbalizes understanding. 10:50:05 Patient needs reinforcement of post procedure teaching. 10:50:19 Procedure and supply charges have been captured, reviewed, submitted and are correct. 10:50:25 Procedure Complication : No complications 10:50:27 See physician's report for complete and final results. 10:50:52 Plavix 600 mg P.O. was administered by Jose E Camejo RN; for antiplatelet therapy; 10:54:52 Cordis 6Fr Exoseal opened to sterile field. 10:55:22 Vital chart was stopped 10:55:25 Report given to PCU. 10:55:28 Patient transfered to PCU with Bed. 10:55:36 Procedure ended. 10:55:36 Full Disclosure recording stopped 10:55:39 End room use (Document Last) Intervention Summary Intervention Notes Time ActionType Lesion and Equipment Action# Pressure Duration Attributes Used 10:44:24 Place stent Aorta Left Regan OTW 1 19 00:08 -> 1st Ob 3.0 x 15 Marg2 stent 10:44:37 Reinflate Aorta Left [place] OTW 2 17 00:07 stent -> 1st Ob 3.0 x 15 balloon Marg2 stent 10:44:57 Reinflate Aorta Left [place] OTW 3 19 00:04 stent -> 1st Ob 3.0 x 15 balloon Marg2 stent 10:47:15 Place stent Aorta Left Regan OTW 1 19 00:09 -> 1st Ob 3.5 x 15 Marg1 stent Device Usage Item Name Manufacture Quantity Catalog Hospital Part Current Minima l Lot# / Number Charge Number Stock Stock Serial# Code Acist Acist 1 12364 315242 114700 865440 20 Syringe Medical Systems Inc Acist Hand Acist 1 93590 407879 000924 012071 5 Control Medical Systems Inc Bag Microtek 1 2002S 205005 19399 769036 5 Bio2 Technologies. Medline Cardinal 1 [id number] 099389 73995 531917 5 Cath Monaeo Terumo 6Fr Terumo 1 [id number] 416684 774470 705329 [address] Gera St Gera 1 305533 837517 594154 173390 30 260cm J .035 wire Merit Merit 1 [id number] 960196 587942 669576 15 Chinese Whis[employer] Medical Inflation Kit Acist Acist 1 64701 887864 229992 500029 5 [employer] Tegaderm 4 3M 1 1626W 039331 972098 583744 5 x 4 Lombardi Lombardi 1 [id number] 604069 350900 448564 5 Whisper J Vascular 300cm 0.014 guide wire Medtronic Medtronic 1 [id number] 785896 49500 621105 1 Launcher 6Fr AR 2.0 SH guide catheter IV Hospira 1 22715-50 330539 89555 257949 5 Extension Set Regan OTW Medtronic 1 [id number] 350179 428535 344892 5 [id number] 3.0 x 15 stent Regan OTW Medtronic 1 [id number] 044142 8796566 278724 5 [id number] 3.5 x 15 stent Cordis 6Fr Cardinal 1 EX600 354332 331966 205090 10 [facility] Signature Audit [place] Stage Time Signature Unsigned Intra-Procedure 11/28/2016 Veronique 10:55:50 AM Counts RT(R) Signatures Monitor : Veronique Signature : Counts RT Date : Time : [place] [id number] [facility] [place] [address]
[2016-11-27] VITALS: BP 144/66
--- NOTE | 2016-11-27 01:33 | NUR ---
[facility] ID BRACLET ON PT. PUT TELEMETRY ON PT. DONE EKG. PT STATES HE DOESNT NEED MORPHINE AT THIS TIME. WAITING ON NITRO, I CANNOT OVERRIDE. HOUSE SUP WILL HAVE TO. PT HAS WALLET, GLASSES, DENTURES, PHONE, BRACLET AND RING. PT HAS IV TO LEFT AC S/L. PT DENIES ANY NEEDS. NO S/S OF DISTRESS. WILL CPOC
[2016-11-27] MEDS ORDERED: ADVIL PM CAPLET1 TAB PO (01:51)
[2016-11-27 04:00] VITALS: BP 98/52
[2016-11-27 04:14] VITALS: BP 144/66; BMI 28.0
--- NOTE | 2016-11-27 07:35 | NUR ---
ASSESSMENT COMPLETED. TELEMERTY SHOWS SR. LEFT AC SL. NPO FOR A CATH. DENIES ANY NEEDS.. FAMILY AT BEDSIDE.
[2016-11-27 08:06] VITALS: BP 103/54
--- NOTE | 2016-11-27 09:25 | NUR ---
TO FIELD OPERATIONS FARM MANAGER PER BED
[2016-11-27 10:06] LABS: BASOPHILS 0.2 % (0-2); EOSINOPHILS 1.8 % (0-7); HEMATOCRIT 47.2 % (42.0-54.0); HEMOGLOBIN 15.4 g/dL (13.5-17.5); IMMATURE GRANULOCYTES 0.2 % (0-5); LYMPHOCYTES 28.1 % (15-50); MCH 28.8 pg (26.0-34.0); MCHC 32.6 g/dL (31.0-37.0); MCV 88.4 fL (80.0-100.0); MEAN PLATELET VOLUME 10.1 fL (7.4-10.4); MONOCYTES 7.7 % (2-11); PLATELET COUNT 249 10x3/uL (130-400); RBC 5.34 10x6/uL (4.20-6.10); RDW 14.6 % (11.5-14.5); WBC 9.3 10x3/uL (4.8-10.8)
[2016-11-27 10:41] VITALS: BMI 27.9
[2016-11-27 10:41] LABS: CALC OSMOLALITY 282 mosm/kg (275-300); CALCIUM 9.1 mg/dL (8.5-10.1); CARBON DIOXIDE 29.9 mmol/L (21.0-32.0); CHLORIDE - SERUM 103 mmol/L (98-107); GLUCOSE 112 mg/dL (74-106); POTASSIUM - SERUM 4.4 mmol/L (3.5-5.1); SODIUM 139 mmol/L (136-145); UREA NITROGEN 23 mg/dL (7-18); eGFR NON AFRICAN AMERICAN 79 mL/min (90-120)
--- NOTE | 2016-11-27 12:16 | NUR ---
PT GIVEN 4MG MORPHINE WITTINESED BY SHRUTHI PASCUAL RN.
--- NOTE | 2016-11-27 12:20 | NUR ---
BACK FROM MANAGER SHELL. V/S STABLE. DRSG TO RIGHT GROIN DRY AND INTACT. TELEMERTY SHOWS SR.
--- NOTE | 2016-11-27 13:45 | NUR ---
MS 4 MG REPEATED FOR CHEST PAIN. MONITOR SHOWS SR @ 68. WILL CONTINUE TO MONITOR
--- NOTE | 2016-11-27 18:27 | NUR ---
LYING QUIIETLY, RIGHT GROIN SOFT WITH DRSG DRY AND INTACT. TELEMERTY SHOWS SR. WILL MONITOR
[2016-11-27 20:00] VITALS: BP 139/78
[2016-11-28] VITALS (10 sets, daily range): BP systolic 121–155; BP diastolic 61–84
--- NOTE | 2016-11-28 00:19 | NUR ---
PT IN BED RESTING QUIETLY. 64 NSR ON TELEMETRY. DENIES ANY PAIN OR NEEDS AT THIS TIME.
--- NOTE | 2016-11-28 03:15 | NUR ---
PT C/O MIDDLE CHEST PRESSURE/PAIN. WAS GIVEN MORPHINE 4 MG ORDERED.
--- NOTE | 2016-11-28 08:20 | NUR ---
PREOP MEDS GIVEN.
--- NOTE | 2016-11-28 10:27 | NUR ---
PT TO BRAND COORDINATOR VIA BED.
--- NOTE | 2016-11-28 11:10 | NUR ---
RETURNED FROM CAR PUSHER. VSS. LEFT GROIN SITE CLEAN DRY INTACT NO S/SX OF HEMATOMA NOTED. PT INSTRUCTED ON S/SX TO CALL. PT INSTRUCTED ON IMPORTANCE OF PLAVIX AND ACTIVITY RESTRICTIONS PER CAR PUSHER STAFF AT BEDSIDE. AT BEDSIDE. C/L IN REACH.
--- NOTE | 2016-11-28 11:46 | NUR ---
BLEEDING NOTED TO LEFT GROIN SITE. MANUAL PRESSURE APPLIED TIMES 5 MINUTES. DRESSING CHANGED AND SANDBAG APPLIED. PEDAL PULSES PRESENT.
--- NOTE | 2016-11-28 14:00 | NUR ---
DISCHARGE INSTRUCTIONS REVIEWED WITH PT AND . NO CURRENT QUESTIONS. WRITTEN RX PROVIDED. WILL DC TELEMETRY AND IV WHEN BED REST COMPLETED.
--- NOTE | 2016-11-28 15:04 | NUR ---
IV DC'D CATH FULLY INTACT. GROIN SITE CLEAN AND DRY. NO S/SX OF BLEEDING OR HEMATOMA NOTED. SITE SOFT TO TOUCH. REINFORCED ALL DC INSTRUCTIONS. NO FURTHER QUESTIONS. PT DC'D HOME WITH FAMILY.
--- NOTE | 2016-11-28 15:27 | NUR ---
Patient Name: JOSÉ MIGUEL SMITH Admission Status: Elective Accout number: [id number] Admission Date: 11-27-2016 : 1950 Admission Diagnosis:CHEST PAIN, UNSPECIFIED Attending: ANGE HOPPER Current LOS: 1 Anticipated DC Date: 11-28-2016 Planned Disposition: Home Primary Insurance: [employer] ADV Discharge Planning Comments: MET WITH PATIENT AND HIS TO DISCUSS DISCHARGE PLANNING AND NEEDS. PATIENT WILL BE RETURNING HOME WITH HIS . THEY DENY ANY NEEDS AT THIS TIME. ENCOURAGED THEM TO CALL IF THEY THOUGHT OF ANYTHING PRIOR TO LEAVING. Nursing Home Manager: Arabella Rosas Is the patient Alert and Oriented? Yes * How many steps to enter\exit or inside your home? RAMP * PCP DR JOHN GARNER * Pharmacy [facility] IN [place], [place] * Preadmission Environment Home with Family * ADLs Independent * Other Equipment PATIENTS SAID SHE HAS THE FOLLOWING EQUIPMENT IN STORAGE FROM HER LATE : ELECTRIC WHEELCHAIR, CANES, WALKERS, BED SIDE COMMODE, SHOWER CHAIR. * List name and contact numbers for known caregivers / representatives who currently or will assist patient after discharge: RANGEL CHI, SISTER [phone] REUBEN SMITH, * Community resources currently utilized None * Additional services required to return to the preadmission environment? No * Can the patient safely return to the preadmission environment? Yes * Has this patient been hospitalized within the prior 30 days at any hospital? No
--- NOTE | 2016-11-28 16:47 | OP ---
PATIENT NAME: JOSÉ MIGUEL SMITH MEDICAL RECORD: [id number] :[birth year] LOCATION:D.M2 D.2125 ADMISSION DATE:11/27/16 SURGEON: VICTORIANO PAYTON MD DATE OF OPERATION: 11/28/2016 PROCEDURES: 1. PTCA stent of vein graft to the left circumflex. 2. Selective coronary and vein graft angiography. INDICATION: Angina and coronary artery disease. PROCEDURE IN DETAIL: After informed consent obtained and after detailed explanation of risks, benefits as well as alternative therapies, the patient elected to proceed with angiogram and angioplasty. The left femoral area was prepped and draped in normal sterile fashion. Left femoral artery was cannulated via modified Seldinger technique with placement of 6-Lithuanian sheath. All catheters exchanged through this sheath. FINDINGS: The vein graft to the circumflex has 2 areas of greater than 80% stenosis. The distal area was addressed with a 3.0 x 15 mm Salter Path, the proximal with a 3.5 x 15 mm Regan. Result was 0% residual stenosis. OVERALL IMPRESSION: Successful percutaneous transluminal coronary angioplasty stent of the vein graft to the circumflex going from 80% initial stenosis to 0% residual stenosis. TRANSINT:[id number] Voice Confirmation ID: [id number] DOCUMENT ID: [id number] VICTORIANO PAYTON MD at 1647 CC: [id number] DICTATION DATE: 11/28/16 1053 BUMPER MACHINE OPERATOR: 11/28/16 1301 DIS IN 11/28/16 [facility] [address] [id number]
--- NOTE | 2016-11-28 16:48 | DS ---
PATIENT:JOSÉ MIGUEL SMITH :[birth year] MEDICAL RECORD: [id number] DISCHARGE SUMMARY ADMISSION DATE: 11/27/16 DISCHARGE DATE: 11/28/16 DISCHARGE DIAGNOSES: 1. Unstable angina. 2. Coronary artery disease. 3. Percutaneous transluminal coronary angioplasty stent to vein graft to left circumflex this admission. HOSPITAL COURSE: This is a gentleman who presents with unstable anginal symptomatology, found to have significant disease of the vein graft to the circumflex, underwent successful PTCA stent in that territory. No further angina. Discharged home with the addition of aspirin and Plavix to his medical regimen. We will follow up with [facility] in 1 month. TRANSINT:[id number] Voice Confirmation ID: [id number] DOCUMENT ID: [id number] VICTORIANO PAYTON MD at 1648 CC: [id number] DICTATION DATE: 11/28/16 1051 CARDIOPULMONARY SPECIALIST: 11/28/16 1418 DIS IN 11/28/16 [id number] [place] [address]
== END 2016-11-28 15:30 | disposition home or self-care (01) | DRG 247 ==
LOC: D.M2 23:59
PROVIDERS: ADMIT Internal Medicine Cardiovascular Disease
PROC: B2151ZZ Fluoroscopy of Left Heart using Low Osmolar Contrast (ICD-10-PCS; 2016-11-27)
PROC: B2121ZZ Fluoroscopy of Single Coronary Artery Bypass Graft using Low Osmolar Contrast (ICD-10-PCS; 2016-11-27)
PROC: 4A023N7 Measurement of Cardiac Sampling and Pressure, Left Heart, Percutaneous Approach (ICD-10-PCS; 2016-11-27)
PROC: B240ZZ3 Ultrasonography of Single Coronary Artery, Intravascular (ICD-10-PCS; 2016-11-27)
PROC: B2111ZZ Fluoroscopy of Multiple Coronary Arteries using Low Osmolar Contrast (ICD-10-PCS; principal; 2016-11-27 09:40)
PROC: 027035Z Dilation of Coronary Artery, One Artery with Two Drug-eluting Intraluminal Devices, Percutaneous Approach (ICD-10-PCS; 2016-11-28)
DX: I21.4 Non-ST elevation (NSTEMI) myocardial infarction (principal); I25.110 Atherosclerotic heart disease of native coronary artery with unstable angina pectoris; I10 Essential (primary) hypertension; Z95.5 Presence of coronary angioplasty implant and graft; Z95.1 Presence of aortocoronary bypass graft; E78.5 Hyperlipidemia, unspecified; J44.9 Chronic obstructive pulmonary disease, unspecified; K21.9 Gastro-esophageal reflux disease without esophagitis

== ENCOUNTER 2017-04-16 13:33 | Inpatient (IN) | payer MEDICARE ==
[~2017-04-16] VITALS: Ht 190.5 cm; Wt 101.6 kg
[2017-04-16] VITALS (10 sets, daily range): BP systolic 115–141; BP diastolic 60–81; BMI 28.2
--- NOTE | ~2017-04-16 | HP ---
PATIENT: JOSÉ MIGUEL BOX MEDICAL RECORD: [id number] ACCOUNT: [id number] LOCATION:[facility].CV07 : [birth year] ADMISSION DATE: 04/16/17 HISTORY AND PHYSICAL EXAMINATION DIAGNOSES: 1. Non-Q-wave myocardial infarction. 2. Coronary disease. 3. Status post coronary bypass graft surgery. 4. Status post PTCA and stent. 5. Hypertension. 6. Hyperlipidemia. HISTORY: Mr. Box presents to [place] with chest pain and chest discomfort, found to have a mildly elevated troponin. He is no longer having any chest discomfort. REVIEW OF SYSTEMS: The patient reports easy bruising but reports no swollen glands. The patient reports no fever, no night sweats, no significant weight gain, no significant weight loss. No significant exercise tolerance. The patient reports no dry eyes, no irritation, no vision change. Patient reports no difficulty hearing and no ear pain. Patient reports no frequent nose bleeds or nose and sinus problems. Patient reports on arm pain on exertion. No shortness of breath while lying down. No history of heart murmur. Patient reports no cough, no wheezing or coughing up blood. Patient reports no abdominal pain, no vomiting. Normal appetite. No diarrhea and not vomiting blood. No nausea and no constipation. Patient reports no incontinence. No difficulty urinating. No hematuria. No increased frequency. Patient reports no muscle aches. No weakness, no arthralgias, no back pain. No swelling of the extremities. Patient reports no abnormal mole, no jaundice, no rashes. Reports no loss of consciousness. No weakness and no numbness. No seizures, dizziness, or headaches. The patient reports no depression, no sleep disturbance, feeling safe in a relationship and no alcohol abuse. Patient reports on fatigue. Reports no runny nose or sinus pressure. No itching, no hives, and no frequent sneezing. PHYSICAL EXAMINATION: GENERAL APPEARANCE: Well-nourished, well-developed, appears stated age. Level of distress, comfortable. PSYCHIATRIC: Mental status, alert, normal affect. Orientation, oriented to time, place and person. EYES: Lids and conjunctiva, noninjected. No discharge, no pallor. ENT: Lips, teeth, gums, normal dentition. Oropharynx, no cyanosis, no pallor. NECK: Carotid arteries, bilateral normal upstroke, no bruits, no thrills. JUGULAR VEINS: No jugular venous pressure or distention. CERVICAL LYMPH NODES: Nontender, nonenlarged. THYROID: Not enlarged. Nontender. No nodules. LUNGS: Respiratory effort, unlabored. CHEST: Normal curvature. No thoracic deformity. No chest wall tenderness. Percussion, resonant. Auscultation, clear. No wheezes, no rales, no rhonchi. CARDIOVASCULAR: Precordial exam, nondisplaced. No heaves or pericardial thrills. Rate and rhythm, regular. Heart sounds, normal S1, normal S2. No S3, no gallop, no rub. Systolic murmur, not heard. Diastolic murmur, not heard. EXTREMITIES: No cyanosis, no edema. Peripheral pulses, full and equal in all extremities, except as noted. No bruits appreciated. HISTORY AND PHYSICAL [id number] JOSÉ MIGUEL BOX ABDOMEN: Soft, nondistended. Normal aorta. No bruit. Nontender. No masses. Liver, nontender, no hepatomegaly. Spleen, nontender, no splenomegaly. MUSCULOSKELETAL: No joint tenderness. No joint swelling. No erythema. NEUROLOGICAL: Normal gait, normal strength, normal tone. SKIN: Warm and dry. OVERALL IMPRESSION: Chest pain compatible with angina with a non-Q-wave myocardial infarction. Most likely, he has recurrent hemodynamically significant coronary disease. We will proceed with coronary angiography. Further care depends upon findings of the angiography. TRANSINT:[id number] Voice Confirmation ID: [id number] DOCUMENT ID: [id number] VICTORIANO PAYTON MD CC: [id number] DICTATION DATE: 04/16/17 160 RESEARCH ASSOCIATE QUALITY CONTROL QC: 04/16/17 1614 ADM IN [id number] [place] [address]
--- NOTE | ~2017-04-16 | OP ---
PATIENT NAME: JOSÉ MIGUEL SMITH MEDICAL RECORD: [id number] :46 LOCATION:D.M2 D.2115 ADMISSION DATE:04/16/17 SURGEON: VICTORIANO PAYTON MD DATE OF OPERATION: 04/17/2017 PROCEDURES: 1. PTCA stent vein graft to the left circumflex. 2. Left heart catheterization. 3. Selective coronary angiography. 4. Vein graft angiography. 5. TORREZ angiography. INDICATION: Non-Q-wave myocardial infarction. PROCEDURE IN DETAIL: After informed consent was obtained and after detailed explanation of risks and benefits as well as alternative therapies, the patient elected to proceed with angiogram and angioplasty. The right femoral area is prepped and draped in normal sterile fashion. Right femoral artery had a preexisting sheath from peripheral intervention. All catheters exchanged through this sheath. FINDINGS: The left ventriculogram was performed in standard 30-degree LOW view, reveals lateral hypokinesis, ejection fraction 40%. SELECTIVE CORONARY ANGIOGRAPHY: 1. Left main is with no significant angiographic disease. 2. Left anterior descending is totally occluded. 3. Left circumflex has a total occlusion of the ramus intermedius; however, the circumflex itself is patent. 4. Vein graft to the LAD is widely patent. Distal LAD is widely patent. 5. Vein graft to the circumflex is acutely closed with large thrombus burden. 6. Vein graft to the right coronary is widely patent. Distal right coronary is widely patent. PTCA STENT OF THE VEIN GRAFT TO THE CIRCUMFLEX: The stent used was a 4.0 x 30 mm Integrity. Result was 0% residual stenosis, still poor GORDON flow secondary to poor runoff distally. Integrilin drip was started and continued. OVERALL IMPRESSION: Successful percutaneous transluminal coronary angioplasty stent of the vein graft to the circumflex going from 100% initial stenosis to 0% residual stenosis, still poor GORDON flow after due to distal vasculature thrombus burden, Integrilin was started. Hopefully, this will clear up with patency of flow and the Integrilin. TRANSINT:[id number] Voice Confirmation ID: [id number] DOCUMENT ID: [id number] VICTORIANO PAYTON MD CC: [id number] DICTATION DATE: 04/17/17 1509 PROFESSOR OF SPANISH: 04/17/17 1644 ADM IN [place] [id number] [place] [address]
--- NOTE | ~2017-04-16 | HEMODYNAMI ---
PATIENT:JOSÉ MIGUEL SMITH MEDICAL RECORD: [id number] : 46 LOCATION:[place] [address] ADMISSION DATE: 04/16/17 Generatedon:04/17/201715:10 Patient name: JOSÉ MIGUEL SMITH Patient #: [id number] : 1950 Date of study: 04/17/2017 Page: Of Hemodynamic Procedure Report Patient Data Patient Demographics Procedure consent was obtained First Name: JOSÉ MIGUEL Gender: Male Last Name: LUIS : 1950 Patient #: [id number] Age: 66 year(s) Race: SSN: [id number] Additional ID: [id number] Contact details Address: [address] [place] [address] State: [place] City: [place] Zip code: [address] Past Medical History Allergies: No known allergies Admission Admission Data Admission Date: 04/16/2017 Admission Time: 13:33 [facility] Lab Result Date: 04/17/2017 Lab Result Time: 14:45 Biochemistry Name Units Result Min Max BUN mg/dl 16 --(---*)-- 7 18 Creatinine mg/dl 1.2 --(---*)-- 0.6 1.3 CBC Name Units Result Min Max Hematocrit % 43 --(*---)-- 42 54 Hemoglobin g/dl 14.2 --(*---)-- 13.5 17.5 Procedure Procedure Types Cath Procedure Diagnostic Procedure LHC LHC w/Coronaries w/Grafts Peripheral Cath Diagnostic Procedure Cath Peripheral Erujm-Hliouqn-Wmr-Off Procedure Description Procedure Date Procedure Date: 04/17/2017 Procedure Start Time: 14:34 Procedure End Time: 15:05 Procedure Staff Name Function Sander Tinajero MD Performing Physician Shoshana Grey RN Nurse Keagan Beth RT Monitor Veronique Ma RT Scrub Procedure Data Cath Procedure Fluoroscopy Diagnostic fluoroscopy Total fluoroscopy Time: 8.3 time: 8.3 min min Diagnostic fluoroscopy Total fluoroscopy dose: dose: 1033 mGy 1033 mGy Contrast Material Contrast Material Type Amount (ml) Isovue 300 169 Entry Location Entry Primary Successful Side Size Upsize 1 Upsize Entry Closure Castro ccessful Closure Location (Fr) (Fr) 2 (Fr) Remarks Device Remarks Femoral Right 5 Fr 6 Fr 6 Fr Exoseal artery Mid-Length Short Estimated blood loss: 10 ml Diagnostic catheters Device Type Used For End Catheter Placement MULTIPACK 3DRC 5Fr Procedure catheter MULTIPACK Pigtail 5 Fr Procedure catheter MULTIPACK JL 4.0 5Fr Procedure catheter Procedure Medications Medication Administration Route Dosage 0.9% NaCl I.V. 100 ml/hr Oxygen NC 2 l/min Lidocaine 2% added to field 20 Heparin Flush Bag added to field 2 bags (1000units/500ml NS) Fentanyl I.V. 50 mcg Versed I.V. 1 mg Versed I.V. 1 mg Fentanyl I.V. 50 mcg Heparin Bolus I.V. 5000 units Integrilin (Bolus I.V. 9 ml 2mg/ml) Integrilin (Bolus I.C. 9 ml 2mg/ml) Integrilin (Bolus wasted 1 ml 2mg/ml) Hemodynamics Rest Heart Rate: 76 (bpm) Snapshots Pre Cath Intra NCS Post Cath Vital Signs Time Heart Resp SPO2 etCO2 NIBP (mmHg) Rhythm Pain Sedation Rate (ipm) (%) (mmHg) Status Level (bpm) 14:10:46 73 16 96 0 167/83(119) NSR 0 (11) 10(A) , No pain 14:15:06 81 21 99 48.9 155/90(127) NSR 0 (11) 10(A) , No pain 14:19:18 83 10 93 23.3 126/75(105) NSR 0 (11) 10(A) , No pain 14:23:32 85 19 97 15 115/68(99) NSR 0 (11) 10(A) , No pain 14:27:44 87 14 98 39.8 127/72(104) NSR 0 (11) 10(A) , No pain 14:31:58 92 14 98 32.3 118/75(108) NSR 0 (11) 10(A) , No pain 14:36:06 92 15 98 51.1 137/86(118) NSR 0 (11) 9(A) , No pain 14:40:24 107 15 98 57.9 133/67(107) NSR 0 (11) 9(A) , No pain 14:44:38 99 14 97 54.8 134/79(114) NSR 0 (11) 9(A) , No pain 14:48:46 97 11 98 18.8 128/79(108) NSR 0 (11) 9(A) , No pain 14:52:53 95 12 98 36.8 147/94(119) NSR 0 (11) 9(A) , No pain 14:57:11 95 21 98 56.4 148/90(118) NSR 0 (11) 9(A) , No pain 15:01:27 93 16 98 42.9 149/89(119) NSR 0 (11) 9(A) , No pain 15:05:46 92 11 99 23.3 161/102(136) NSR 0 (11) 9(A) , No pain Medications Time Medication Route Dose Verified Delivered Reason Not es Effectiveness by by 14:09:45 0.9% NaCl I.V. 100ml/hr Sander Shoshana used for Lior Grey RN procedure 14:09:54 Oxygen NC 2 l/min Sander Anna Per physician Lior Grey RN 14:10:01 Lidocaine 2% added 20ml Sander Sander for local to vial Lior Tinajero MD anesthetic field 14:10:06 Heparin Flush added 2 bags Sander Sander used for Bag to Lior Tinajero MD procedure (1000units/500ml field NS) 14:21:57 Fentanyl I.V. 50 mcg Sander Normanfany for sedation Lior Grey RN 14:22:05 Versed I.V. 1 mg Sander Shoshana for sedation Lior Grey RN 14:27:57 Versed I.V. 1 mg Sander Shoshana for sedation Lior Grey RN 14:32:56 Fentanyl I.V. 50 mcg Sander Shoshana for sedation Lior Grey RN 14:40:44 Heparin Bolus I.V. 5000 Sander Shoshana for anthony ified units Lior Grey RN anticoagulation by 14:41:03 Integrilin I.V. 9 ml Sander Normanfany for was te (Bolus 2mg/ml) Lior Grey RN antiplatelet 1ML therapy 14:50:57 Integrilin I.C. 9 ml Sander Boucher for (Bolus 2mg/ml) Lior Tinajero MD antiplatelet therapy 14:51:21 Integrilin wasted 1 ml Sander Boucher to sharp's (Bolus 2mg/ml) Lior Tinajero MD Procedure Log Time Note 13:53:51 Yonathan Harding RT(R) (CV) sent for patient. Start room use. 13:53:52 Time tracking: Regular hours 13:53:55 Plan of Care:Hemodynamics will remain stable., Cardiac rhythm will remain stable., Comfort level will be maintained., Respiratory function will remain adequate., Patient/ family verbilizes understanding of procedure., Procedure tolerated without complication., Recovers from procedure without complications.. 14:03:51 Patient received from Med II to CCL 2 Alert and oriented. Tansferred to table in Supine position. 14:03:52 Warm blankets applied, and goldy hugger turned on for patient comfort. 14:03:53 Correct patient and procedure confirmed by team. 14:03:57 Signed procedure consent form obtained from patient. 14:03:58 ECG and BP/O2 sat monitors applied to patient. 14:09:26 Vital chart was started 14:09:45 0.9% NaCl 100ml/hr I.V. was administered by Shoshana Grey RN; used for procedure; 14:09:54 Oxygen 2 l/min NC was administered by Shoshana Grey RN; Per physician; 14:10:01 Lidocaine 2% 20ml vial added to field was administered by Sander Tinajero MD; for local anesthetic; 14:10:06 Heparin Flush Bag (1000units/500ml NS) 2 bags added to field was administered by Sander Tinajero MD; used for procedure; 14:13:51 Baseline sample Acquired. 14:14:00 Rhythm: sinus rhythm 14:14:02 Full Disclosure recording started 14:15:22 H&P Date Dictated: 04/16/2017 Within 30 days and on chart.. 14:15:27 Pre-procedure instructions explained to patient. 14:15:27 Pre-op teaching completed and patient verbalized understanding. 14:15:29 Family in patients room. 14:15:30 Patient NPO since Midnight. 14:16:20 Patient allergic to No known allergies 14:16:22 Is the patient allergic to Iodine/contrast media? No. 14:16:24 Is patient on blood thinner?Yes 14:16:27 ACC The patient was administered the following blood thiners within the last 24 hours: ACCPlavix 14:16:28 Patient diabetic? No. 14:16:30 Previous problem with sedation/anesthesia? No ? 14:16:30 Snore? Yes 14:16:31 Sleep apnea? No 14:16:32 Deviated septum? No 14:16:32 Opens mouth fully? Yes 14:16:33 Sticks out tongue? Yes 14:16:36 Airway obstruction? Yes COPD 14:16:45 Dentures? No ? 14:16:48 Pre procedure: right dorsailis pedis pulse 2+ Normal; easily identifiable; not easily obliterated 14:16:50 Patient pain scale 0/10 ?. 14:16:59 IV patent on arrival in left hand with 0.9% NaCl at [facility]. 14:17:46 Lab Result : Creatinine 1.2 mg/dl 14:17:46 Lab Result : BUN 16 mg/dl 14:17:46 Lab Result : Hemoglobin 14.2 g/dl 14:17:46 Lab Result : Hematocrit 43 % 14:17:48 Lab results completed and on chart. 14:17:51 Right groin area was prepped with chlora-prep and draped in sterile fashion 14:17:54 Alarms reviewed by R. N. 14:17:54 Sharps counted by scrub and verified by R.N. 14:17:56 Use device set Femoral Dx 14:17:57 ACIST Syringe (90808) opened to sterile field. 14:17:58 Bag Decanter (2002) opened to sterile field. 14:18:00 Medline Cath Pack ([id number]) opened to sterile field. 14:18:01 ACIST Hand Control (37618) opened to sterile field. 14:18:04 ACIST Manifold (40107) opened to sterile field. 14:18:08 PERCUTANEOUS ENTRY 19GA needle opened to sterile field. 14:18:09 Tegaderm 4 x 4 (1626W) opened to sterile field. 14:18:11 SHEATH 5FR [place] (YTL149) opened to sterile field. 14:18:11 DIAGNOSTIC WIRE .035 260cm J wire (984956) opened to sterile field. 14:18:13 DIAGNOSTIC Multipack 5Fr catheter set (II5125) opened to sterile field. 14:19:26 Zero performed for pressure channel P1 14:: Physician arrived : --------ALL STOP TIME OUT------ :: Final Timeout: patient, procedure, and site verified with staff and physician. All members of the team are in agreement. 14::30 Right groin site verified by team. 14::32 Physical assessment completed. ASA score P 2 - A patient with mild systemic disease as per Sander Tinajero MD. 14::37 Sedation plan: IV Moderate Sedation Medication:Versed, Fentanyl 14::57 Fentanyl 50 mcg I.V. was administered by Shoshana Grey RN; for sedation; 14:22:05 Versed 1 mg I.V. was administered by Shoshana Grey RN; for sedation; 14::57 Versed 1 mg I.V. was administered by Shoshana Grey RN; for sedation; 14:32:56 Fentanyl 50 mcg I.V. was administered by Shoshana Grey RN; for sedation; 14:33:57 Procedure started. 14:34:01 Local anesthetic to right femoral artery with Lidocaine 2% by Sander Tinajero MD.INITIAL ACCESS ONLY 14:34:37 A 5 Fr sheath was inserted into the Right Femoral artery 14:36:35 GLIDE WIRE Super Stiff Angled 260cm (IA4070) opened to sterile field. 14:36:40 A MULTIPACK 3DRC 5Fr catheter was advanced over the wire and used for Procedure. 14:36:49 glide wire advanced. 14:37:14 Zero performed for pressure channel P1 14:37:58 Wire removed. 14:38:08 SVG to RCA angiography performed. 14:39:01 SVG to Circ angiography performed. 14:39:50 Catheter exchanged over wire. 14:39:54 A MULTIPACK Pigtail 5 Fr catheter was advanced over the wire and used for Procedure. 14:40:27 LV gram done using OLW 14:40:30 Injector settings: Ml/sec: 10, Volume: 20, 14:40:34 Sheath upsized to a 6 Fr Mid-Length. 14:40:35 EF : 40 % 14:40:36 Catheter removed. 14:40:44 Heparin Bolus 5000 units I.V. was administered by Shoshana Grey RN; for anticoagulation; verified by 14:40:44 Abdominal angiogram w/ runoff was performed. 14:40:56 Left leg runoff performed. 14:40:57 SHEATH 6FR [place] (FZE113) opened to sterile field. 14:41:03 Integrilin (Bolus 2mg/ml) 9 ml I.V. was administered by Shoshana Grey RN; for antiplatelet therapy; waste 1ML 14:42:00 Right leg runoff performed. 14:42:49 Catheter removed. 14:42:53 INFLATOR Merit BasixCompak (QB4604) opened to sterile field. 14:43:46 A MULTIPACK JL 4.0 5Fr catheter was advanced over the wire and used for Procedure. 14:43:48 LCA angiography performed. 14:44:31 Catheter removed. 14:44:41 SHEATH 6FR Brite Tip 35cm (087072D) opened to sterile field. 14:44:58 CHOICE PT Extra Support 182cm wire ([id number]) opened to sterile field. 14:45:58 sheath upsized to a 6FR Brite Tip 35cm 14:46:13 GUIDE 6FR AR 2.0 catheter ([id number]) opened to sterile field. 14:46:25 6 Fr ar 2 guide catheter was inserted over the wire 14:46:39 SVG to LAD angiography performed. 14:46:47 SVG to Circ angiography performed. 14:48:54 choice pt wire advanced. 14:48:56 Wire advanced across lesion. 14:49:30 Inflation number: 1 A EUPHORA 3.5 x 15 Balloon ([id number]) was prepped and advanced across the Aorta Left -> Mid CX, then inflated to 13 MATT for 0:10 (min:sec). 14:49:35 Inflation number: 2 The EUPHORA 3.5 x 15 Balloon ([id number]) was reinflated across the Aorta Left -> Mid CX, to 13 MATT for 0:10 (min:sec). 14:49:44 Balloon removed over the wire. 14:50:57 Integrilin (Bolus 2mg/ml) 9 ml I.C. was administered by Sander Tinajero MD; for antiplatelet therapy; 14:51:03 Inflation Number: 3 A INTEGRITY RX 4.0 x 30 stent ([id number]) was prepped and advanced across the Aorta Left -> Mid CX. The stent was deployed at 17 MATT for 0:10 (min:sec). 14:51:21 Integrilin (Bolus 2mg/ml) 1 ml wasted was administered by Sander Tinajero MD; to sharp's; 14:52:30 Stent catheter was removed intact over wire. 14:52:50 Inflation number: 4 A EUPHORA 2.5 x 15 Balloon ([id number]) was prepped and advanced across the Aorta Left -> Mid CX, then inflated to 7 MATT for 0:10 (min:sec). 14:52:57 Inflation number: 5 The EUPHORA 2.5 x 15 Balloon ([id number]) was reinflated across the Aorta Left -> Mid CX, to 13 MATT for 0:10 (min:sec). 14:53:06 Inflation number: 6 The EUPHORA 2.5 x 15 Balloon ([id number]) was reinflated across the Aorta Left -> Mid CX, to 13 MATT for 0:10 (min:sec). 14:54:00 Balloon removed over the wire. 14:54:01 Wire removed. 14:54:01 Guide catheter removed. 14:55:30 J wire advanced. 14:56:19 Procedure type changed to Cath procedure, Diagnostic procedure, LHC, LHC w/Coronaries w/Grafts, Peripheral Cath Diagnostic Procedure, Cath Peripheral, Juklb-Othtuos-Zlq-Off 14:56:56 Inflation Number: 1 A EAMON 8 x 18 x 135 stent ([id number]) was prepped and advanced across the Proximal Internal Iliac, Right. The stent was deployed at 13 MATT for 0:10 (min:sec). 14:56:58 Stent catheter was removed intact over wire. 14:56:59 Wire removed. 14:57:06 Sheath upsized to a 6 Fr Short. 14:57:13 EXOSEAL 6Fr (EX600) opened to sterile field. 14:57:20 Sheath removed intact; hemostasis achieved with Exoseal to the Right Femoral artery. 14:58:33 Procedure ended.(Physican Out) 15:00:11 Fluoroscopy time 08.30 minutes. 15:00:15 Fluoroscopy dose: 1033 mGy 15:00:15 Flurop Dose total: 1033 15:00:19 Contrast amount:Isovue 300 169ml. 15:02:46 FEMSTOP Gold (H81874) opened to sterile field. 15:02:51 Sharps counted by scrub and verified by R.N. 15:02:59 Post-op/insertion site Right Femoral artery dressed using a 4 x 4 and Tegaderm. 15:03:22 Post right femoral artery:stable, soft, clean and dry 15:03:24 Post Procedure Pulses reassessed and unchanged 15:03:37 Femstop placed over the right femoral artery at 155 mmHg. Hemostasis achieved. 15:03:40 Post-procedure physical assessment completed. ASA score P 2 - A patient with mild systemic disease as per Sander Tinajero MD. 15:03:42 Post procedure rhythm: unchanged. 15:03:45 Estimated blood loss: 10 ml 15:03:47 Post procedure instruction explained to patient.Patient verbalizes understanding. 15:03:47 Patient needs reinforcement of post procedure teaching. 15:05:41 Procedure and supply charges have been captured, reviewed, submitted and are correct. 15:05:46 Vital chart was stopped 15:05:46 See physician's report for complete and final results. 15:05:47 Report given to PCU. 15:05:50 Patient transfered to PCU with Stretcher. 15:05:51 Procedure ended. 15:05:51 Full Disclosure recording stopped 15:05:59 End room use (Document Last) Intervention Summary Intervention Notes Time ActionType Lesion and Equipment Action# Pressure Duration Attributes Used 14:49:30 Inflate Aorta Left EUPHORA 3.5 1 13 00:10 balloon -> Mid CX x 15 Balloon ([id number]) 14:49:35 Reinflate Aorta Left EUPHORA 3.5 2 13 00:10 balloon -> Mid CX x 15 Balloon ([id number]) 14:51:03 Place stent Aorta Left INTEGRITY RX 3 17 00:10 -> Mid CX 4.0 x 30 stent ([id number]) 14:52:50 Inflate Aorta Left EUPHORA 2.5 4 7 00:10 balloon -> Mid CX x 15 Balloon ([id number]) 14:52:57 Reinflate Aorta Left EUPHORA 2.5 5 13 00:10 balloon -> Mid CX x 15 Balloon ([id number]) 14:53:06 Reinflate Aorta Left EUPHORA 2.5 6 13 00:10 balloon -> Mid CX x 15 Balloon ([id number]) 14:56:56 Place stent Proximal EAMON 8 x 1 13 00:10 Internal 18 x 135 Iliac, stent Right ([id number]) Device Usage Item Name Manufacture Quantity Catalog Number Hospital Part Current Mini mal Lot# / Charge Number Stock Stock Serial# Code ACIST Acist 1 34119 081810 851092 225778 20 Syringe Medical (80048) Systems Inc Bag Decanter Microtek 1 2001S 100769 29498 382004 5 (2001S) Medical Inc. Medline Cath Cardinal 1 [id number] 678429 18635 146266 5 Pack Health ([id number]) ACIST Hand Acist 1 00248 432730 849104 986361 5 Control Medical (45122) Systems Inc ACIST Acist 1 51426 781775 580814 950482 5 Manifold Medical (94715) Systems Inc PERCUTANEOUS Cook Medical 1 G25838 599899 910543 5 ENTRY 19GA needle Tegaderm 4 x 3M 1 1626W 313469 538231 849369 5 4 (1626W) SHEATH 5FR Terumo 1 LOZ405 292549 617471 457869 40 [place] (ZKG098) DIAGNOSTIC St Gera 1 748918 728300 877278 968711 30 WIRE .035 260cm J wire (742449) DIAGNOSTIC Cardinal 1 OX4975 253615 12423 922615 30 Multipack Health 5Fr catheter set (FU3852) GLIDE WIRE Terumo 1 UN0035 415355 515524 729142 5 Super Stiff Angled 260cm (JB4050) MULTIPACK Cardinal 1 679583 5 3DRC 5Fr Health catheter MULTIPACK Cardinal 1 680588 5 Pigtail 5 Fr Health catheter INFLATOR Merit 1 LG2377 958710 335770 397169 15 Veduca Medical BasixCompak (ZQ5828) SHEATH 6FR Terumo 1 MLD545 409687 098534 309044 40 [place] (VZE954) MULTIPACK JL Cardinal 1 530081 5 4.0 5Fr Health catheter SHEATH 6FR Cardinal 1 861089R 664371 771583 125538 1 Brite Tip Health 35cm (205442D) CHOICE PT [place] 1 [id number] 244643 911160 031384 5 Extra Scientific Support 182cm wire ([id number]) GUIDE 6FR AR Medtronic 1 PJ9QE41 924698 19105 742909 1 2.0 catheter (MY7MQ50) EUPHORA 3.5 Medtronic 1 [id number] 945283 315869 790867 5 [id number] x 15 Balloon ([id number]) INTEGRITY RX Medtronic 1 [id number] 348292 021649 791360 5 [id number] 4.0 x 30 stent ([id number]) EUPHORA 2.5 Medtronic 1 [id number] 709133 132028 410794 5 [id number] x 15 Balloon ([id number]) EAMON 8 x Cardinal 1 [id number] 571957 842401 5 18 x 135 Health stent ([id number]) EXOSEAL 6Fr Cardinal 1 EX600 594785 071594 190525 10 (EX600) Health FEMSTOP Gold St Gera 1 Y12449 292474 422703 900000 5 ([id number]) Signature Audit [place] Stage Time Signature Unsigned Intra-Procedure 04/17/2017 Keagan Beth 3:10:19 PM RT(R) Signatures Monitor : Keagan Beth RT Signature : Date : Time : [facility] [address] [place] [address]
--- NOTE | ~2017-04-16 | OP ---
PATIENT NAME: JOSÉ MIGUEL SMITH MEDICAL RECORD: [id number] :46 LOCATION:D.M2 D.2115 ADMISSION DATE:04/16/17 SURGEON: VICTORIANO PAYTON MD DATE OF OPERATION: 04/17/2017 PROCEDURE: 1. Stent placement, iliac, right. 2. SENIOR INFORMATION SECURITY ENGINEER iliac, right. 3. Aortofemoral runoff. 4. Abdominal aortography. INDICATION: Claudication, peripheral vascular disease, inability to gain access for cardiac intervention. DESCRIPTION OF PROCEDURE: After informed consent was obtained and after detailed explanation of risks, benefits as well as alternative therapies, the patient elected to proceed with angiogram and angioplasty. The right femoral area was prepped and draped in normal sterile fashion. The right femoral artery was cannulated via modified Seldinger technique with placement of 6-Swedish sheath. All catheters exchanged through this sheath. FINDINGS: Abdominal aortography was performed and the catheter was pulled down for aortofemoral runoff. Abdominal aortography reveals no significant abdominal aortic disease, no dissection or aneurysm formation. No renal artery stenosis. RIGHT LEG: A. Iliac. The common iliac is widely patent. The external iliac just before the internal iliac has 80% stenosis. B. Femoral system: The common superficial and deep femoral have moderate irregularities, but no flow-limiting stenosis. C. Popliteal and infrapopliteal vessels are preserved with good 3-vessel runoff to the foot, although mildly diffusely diseased. LEFT LEG: A. Iliac: The common internal and external iliacs have moderate irregularities, but no flow-limiting stenosis. B. Femoral system: The common superficial and deep femoral have moderate irregularities, but no flow-limiting stenosis. C. Popliteal and infrapopliteal vessels are widely patent with good 3-vessel runoff to the foot. SENIOR INFORMATION SECURITY ENGINEER STENT OF THE EXTERNAL ILIAC, RIGHT: Stent used 8 mm Cordis Ana stent taken to 15 atmospheres. Result was 0% residual stenosis. OVERALL IMPRESSION: Successful percutaneous transluminal angioplasty stent of the right external iliac going from 80% stenosis to 0% residual stenosis. TRANSINT:[id number] Voice Confirmation ID: [id number] DOCUMENT ID: [id number] OPERATIVE REPORT [id number] JOSÉ MIGUEL SMITH VICTORIANO PAYTON MD CC: [id number] DICTATION DATE: 04/17/17 1509 FORESTRY FARM LABORER: 04/17/17 1647 ADM IN [address] [address]
[~2017-04-16 13:33] MED LIST changes: +ADVIL PM CAPLET1 TAB PO
[2017-04-16 15:09] LABS: BASOPHILS 0.2 % (0-2); EOSINOPHILS 1.5 % (0-7); HEMOGLOBIN 14.2 g/dL (13.5-17.5); IMMATURE GRANULOCYTES 0.6 % (0-5); LYMPHOCYTES 20.7 % (15-50); MCH 29.6 pg (26.0-34.0); MCV 89.6 fL (80.0-100.0); MEAN PLATELET VOLUME 9.8 fL (7.4-10.4); MONOCYTES 6.7 % (2-11); NEUTROPHILS 70.3 % (40-80); PLATELET COUNT 216 10x3/uL (130-400); RDW 13.5 % (11.5-14.5)
[2017-04-16 15:20] LABS: ANION GAP 5.9 mmol/L (8-16); CALCIUM 8.5 mg/dL (8.5-10.1); CARBON DIOXIDE 30.8 mmol/L (21.0-32.0); CREATININE - SERUM 1.2 mg/dL (0.6-1.3); POTASSIUM - SERUM 3.7 mmol/L (3.5-5.1)
[2017-04-17 04:00] VITALS: BP 125/82
[2017-04-17 09:02] VITALS: BP 124/76
[2017-04-17 12:14] VITALS: BP 135/75
[2017-04-17 13:20] VITALS: Ht 190.5 cm; Wt 101.6 kg
[2017-04-17 16:19] VITALS: BP 132/75
[2017-04-17 20:46] VITALS: BP 131/73
[2017-04-18 06:57] VITALS: BP 136/91
== END 2017-04-18 10:13 | disposition home or self-care (01) | DRG 249 ==
LOC: D.M2 13:33 → D.CVICU 13:33 → D.M2 21:39
PROVIDERS: Internal Medicine Interventional Cardiology
PROC: B2151ZZ Fluoroscopy of Left Heart using Low Osmolar Contrast (ICD-10-PCS; 2017-04-17)
PROC: B2181ZZ Fluoroscopy of Left Internal Mammary Bypass Graft using Low Osmolar Contrast (ICD-10-PCS; 2017-04-17)
PROC: 047H3DZ Dilation of Right External Iliac Artery with Intraluminal Device, Percutaneous Approach (ICD-10-PCS; 2017-04-17)
PROC: B4101ZZ Fluoroscopy of Abdominal Aorta using Low Osmolar Contrast (ICD-10-PCS; 2017-04-17)
PROC: 02703DZ Dilation of Coronary Artery, One Artery with Intraluminal Device, Percutaneous Approach (ICD-10-PCS; principal; 2017-04-17 12:00)
PROC: 4A023N7 Measurement of Cardiac Sampling and Pressure, Left Heart, Percutaneous Approach (ICD-10-PCS; 2017-04-17 12:00)
PROC: B2111ZZ Fluoroscopy of Multiple Coronary Arteries using Low Osmolar Contrast (ICD-10-PCS; 2017-04-17 12:00)
DX: I21.4 Non-ST elevation (NSTEMI) myocardial infarction (principal); I25.118 Atherosclerotic heart disease of native coronary artery with other forms of angina pectoris; E78.5 Hyperlipidemia, unspecified; I10 Essential (primary) hypertension; I73.9 Peripheral vascular disease, unspecified; Z95.5 Presence of coronary angioplasty implant and graft; Z95.1 Presence of aortocoronary bypass graft

== ENCOUNTER 2017-09-23 10:17 | Outpatient (CLI) | payer MEDICARE ==
[~2017-09-23] VITALS: Ht 190.5 cm; Wt 107.3 kg
[2017-09-23 10:59] LABS: BASOPHILS 0.2 % (0-2); EOSINOPHILS 1.7 % (0-7); HEMOGLOBIN 16.4 g/dL (13.5-17.5); IMMATURE GRANULOCYTES 0.2 % (0-5); LYMPHOCYTES 26.6 % (15-50); MCH 29.1 pg (26.0-34.0); MCHC 33.5 g/dL (31.0-37.0); MONOCYTES 6.5 % (2-11); NEUTROPHILS 64.8 % (40-80); RBC 5.63 10x6/uL (4.20-6.10); RDW 13.5 % (11.5-14.5); WBC 9.2 10x3/uL (4.8-10.8)
[2017-09-23 11:16] LABS: INR 1.2 (0.85-1.17); PROTIME 14.8 SECONDS (11.6-15.0)
[2017-09-23 11:17] LABS: APTT 38.8 SECONDS (22.8-39.4)
[2017-09-23 11:29] LABS: ANION GAP 8.8 mmol/L (8-16); CALCIUM 9.1 mg/dL (8.5-10.1); CREATININE - SERUM 1.2 mg/dL (0.6-1.3); POTASSIUM - SERUM 3.8 mmol/L (3.5-5.1)
[2017-09-23 12:09] LABS: PLATELET COUNT 264 10x3/uL (130-400)
[2017-09-23 12:23] VITALS: BP 118/55; Ht 190.5 cm; Wt 107.3 kg
== END 2017-09-23 15:45 | disposition home or self-care (01) ==
LOC: D.SP 10:17 → D.CT 13:00 → D.SP 15:45
PROVIDERS: Specialist
DX: C88.4 Extranodal marginal zone B-cell lymphoma of mucosa-associated lymphoid tissue [MALT-lymphoma] (principal); Z01.812 Encounter for preprocedural laboratory examination

== ENCOUNTER → 2018-12-21 10:49 | Outpatient (CLI) | payer MEDICARE ==
[2017-09-23 12:23] VITALS: BMI 29.5
== END | disposition home or self-care (01) ==
LOC: D.CT 10:49
PROVIDERS: ATTEND Internal Medicine Hematology & Oncology
DX: C88.4 Extranodal marginal zone B-cell lymphoma of mucosa-associated lymphoid tissue [MALT-lymphoma] (principal)

== ENCOUNTER → 2018-12-30 10:40 | Outpatient (CLI) | payer MEDICARE ==
[2017-09-23 12:23] VITALS: BMI 29.5
--- NOTE | 2019-01-05 14:07 | ST ---
PATIENT:JOSÉ MIGUEL SMITH MEDICAL RECORD: [id number] SEX: M LOCATION:[facility] ORDER #: ADMISSION DATE: 12/30/18 AGE OF PATIENT: 68 REFERRING PHYSICIAN: INTERPRETING PHYSICIAN: VICTORIANO PAYTON MD DATE OF SERVICE: 12/30/2018 INDICATION: Angina, coronary artery disease, peripheral vascular disease, hypertension and hyperlipidemia. TECHNIQUE: The patient was exercised on standard Carson protocol for 6 minutes, achieving greater than 85% max target heart rate response with 33 mCi of sestamibi injected at peak stress, 11 mCi used previously for rest images. FINDINGS: Gated SPECT reveals a preserved ejection fraction at 60% with decreased thickening and brightening throughout the inferior segments. SPECT imaging Cardiolite was used as myocardial perfusion agent. There was a fixed perfusion defect inferiorly and laterally compatible with previous inferolateral myocardial infarction. No evidence of reversible ischemia. In fact, the defect shows improvement demonstrating reversed redistribution with stress. OVERALL IMPRESSION: This is a stable nuclear stress test only showing a fixed perfusion defect inferolaterally compatible with previous inferolateral myocardial infarction. No evidence of reversibility and ejection fraction preserved at 60%. Continue medical management of the coronary artery disease and cardiac risk factors. TRANSINT:[id number] Voice Confirmation ID: [id number] DOCUMENT ID: [id number] VICTORIANO PAYTON MD at 1407 CC: JOHN GARNER MD [id number] DICTATION DATE: 12/31/18 1450 CLIENT SERVICES ANALYST: 01/01/19 0743 DEP CLI 12/30/18 [place] [id number]
== END | disposition home or self-care (01) ==
LOC: D.HCCARDIO 10:40
PROVIDERS: ATTEND Internal Medicine Interventional Cardiology
DX: I25.709 Atherosclerosis of coronary artery bypass graft(s), unspecified, with unspecified angina pectoris (principal)

== ENCOUNTER 2019-08-18 13:14 | Observation (INO) | payer OTHER ==
[~2019-08-18] VITALS: Ht 190.5 cm; Wt 99.8 kg
[2019-08-18] VITALS (7 sets, daily range): BP systolic 114–152; BP diastolic 56–83; BMI 27.5
--- NOTE | ~2019-08-18 | OP ---
PATIENT NAME: JOSÉ MIGUEL SMITH MEDICAL RECORD: [id number] :46 LOCATION:D. D.2127 ADMISSION DATE:08/18/19 SURGEON: LATOYA PERRY MD DATE OF OPERATION: 08/19/2019 PROCEDURE: Left heart catheterization, selective coronary angiography, right femoral artery approach. CATHETERS: A 5-Panamanian sheath, 5/4 left and right Elizabeth, 5/4 pig. The procedure was well tolerated. The patient returned to the salguero. Sheath removed. ExoSeal device placed. FINDINGS: Left ventriculography in 30-degree LOW view shows anterior, anteroapical, and inferoapical hypokinesis. Overall, function reduced at 40%. CORONARY ANATOMY: LEFT MAIN: Left main is free of disease. LAD: Fills for a short period of time and is totally occluded. CIRCUMFLEX: Areas of previous stenting is widely patent without evidence of restenosis. RIGHT CORONARY ARTERY: Fills for a short period of time and is totally occluded. BYPASS GRAFTS: 1. Saphenous vein graft to the LAD diagonal widely patent throughout the course without evidence of post-anastomotic stenosis. 2. Saphenous vein graft to the right at the anastomotic site showed a fissured plaque with marked thrombus burden up and down the lesion. The TORREZ was injected. This is widely patent; however, has not attached to any coronary artery. PLAN: Intervention to the right momentarily, saphenous vein graft momentarily. DESCRIPTION OF PROCEDURE: A 5-Panamanian sheath was exchanged for a 6-Panamanian sheath. A multipurpose guide catheter provided excellent guide catheter support. A 300 cm Whisper wire was placed across the occluded area. At this point in time, the patient was given both IC Integrilin and IC Cardene. Balloon used was a 3.0 x 15 Euphora balloon up to 15 atmospheres. Final angiography shows excellent resolution of 90% plus stenosis, no significant residual. GORDON flow improved from 2-3. Posterior descending branch was pinched of thrombus with GORDON flow 2 distally, posterolateral looked excellent. Sheath closed with ExoSeal device. Given the thrombus formation, the patient was switched from Plavix to Effient in the case he become Plavix nonresponder. TRANSINT:[id number] Voice Confirmation ID: [id number] DOCUMENT ID: [id number] OPERATIVE REPORT [id number] JOSÉ MIGUEL SMITH LATOYA PERRY MD CC: [id number] DICTATION DATE: 08/19/19 1251 SHOE DRESSER: 08/19/192102 DIS IN 08/19/19 [facility] [address] [id number]
--- NOTE | ~2019-08-18 | HEMODYNAMI ---
PATIENT:JOSÉ MIGUEL SMITH MEDICAL RECORD: [id number] : 46 LOCATION:[facility] D.2127 ADMISSION DATE: 08/18/19 Generatedon:08/19/201912:47 Patient name: JOSÉ MIGUEL SMITH Patient #: [id number] : 1950 Date of study: 08/19/2019 Page: Of Hemodynamic Procedure Report Patient Data Patient Demographics Procedure consent was obtained First Name: JOSÉ MIGUEL Gender: Male Last Name: LUIS : 1950 Middle Initial: NYDIA Age: 68 year(s) Patient #: [id number] Race: SSN: [id number] Additional ID: [id number] Contact details Address: [address] [place] [address] State: [place] City: [place] Zip code: [address] Past Medical History History of disease Date Diagnosis Comments CAD COPD Allergies: No known allergies Admission Admission Data Admission Date: 08/18/2019 Admission Time: 16:28 Arrival Date: 08/19/2019 Arrival Time: 0:00 Room #: D.2127 Height (in.): 73 BSA: 2.24 (m2) Height (cm.): 185.42 BMI: 29.03 (kg/m2) Weight (lbs.): 220 Weight (kg.): 99.79 Lab Results Lab Result Date: 08/19/2019 Lab Result Time: 0:00 Biochemistry Name Units Result Min Max BUN mg/dl 15 --(--*-)-- 7 18 Creatinine mg/dl 1 --(--*-)-- 0.6 1.3 eGFR ml/min 78 *-(----)-- 90 120 NONAFRICAN CBC Name Units Result Min Max Hematocrit % 47.2 --(-*--)-- 42 54 Hemoglobin g/dl 15 --(-*--)-- 13.5 17.5 Procedure Procedure Types Cath Procedure Diagnostic Procedure LHC LHC w/Coronaries w/Grafts Sedation Charges Moderate Sedation up to 45 minutes PCI Procedure PTCA PTCA Initial Hemochron ACT Test Procedure Description Procedure Date Procedure Date: 08/19/2019 Procedure Start Time: 12:09 Procedure End Time: 12:46 Procedure Staff Name Function Ye Cerda MD Performing Physician Esther Freed RT Scrub Allison Cantor RN Nurse Frida Simmons RT Monitor Lupe Beltran RT Monitor Procedure Data Cath Procedure Fluoroscopy Diagnostic fluoroscopy Total fluoroscopy Time: 8.1 time: 8.1 min min Diagnostic fluoroscopy Total fluoroscopy dose: 933 dose: 933 mGy mGy Contrast Material Contrast Material Type Amount (ml) Isovue 300 117 Entry Location Entry Primary Successful Side Size Upsize Upsize Entry Closure Succes sful Closure Location (Fr) 1 (Fr) 2 (Fr) Remarks Device Remarks Femoral Right 5 Fr 6 Fr Exoseal artery Short Estimated blood loss: 10 ml Diagnostic catheters Device Type Used For End Catheter Placement MULTIPACK 3DRC 5Fr Procedure catheter DIAGNOSTIC AR2 MOD 5 Fr Procedure catheter ([id number]) MULTIPACK JL 4.0 5Fr Left Coronary catheter Angiography MULTIPACK Pigtail 5 Fr LV Angiography catheter Procedure Complications No complications Procedure Medications Medication Administration Route Dosage 0.9% NaCl I.V. 100 ml/hr Oxygen etCO2 Nasal cannula 2 l/min Lidocaine 2% added to field 20 Heparin Flush Bag added to field 2 bags (1000units/500ml NS) Versed I.V. 2 mg Fentanyl I.V. 50 mcg Heparin Bolus I.V. 5000 units Integrilin (Bolus I.V. 9 ml 2mg/ml) Integrilin (Bolus wasted 1 ml 2mg/ml) Effient P.O. 60 mg Integrilin (Bolus I.C. 9 ml 2mg/ml) Integrilin (Bolus wasted 1 ml 2mg/ml) Fentanyl I.V. 50 mcg Cardene I.C. 300 mcg Hemodynamics Rest BSA: 2.24 (m2) HGB: 15 (g/dl) O2 Consumption: Estimated: 262.56 (ml/min) O2 Cons umption indexed: Estimated:117.21 (ml/min/m) Heart Rate: 74 (bpm) Pressure Samples Time Site Value (mmHg) Purpose Heart Use Rate(bpm) 12:21 LV 137/7,10 Snapshot 89 12:21 AO 120/64(89) Pullback 85 Gradients Valve Time Site Site 2 Mean SEP/DFP Peak To Heart Use 1 (mmHg) (sec/min) Peak Rate (mmHg) (bpm) Aortic 12:21 LV AO 5 17 85 120/64(89) Calculations Valve P-P Mean Valve Index Valve Source Name Gradient Area Flow (cm2) Aortic 5 5 Snapshots Pre Cath Intra NCS Post Cath Vital Signs Time Heart Resp SPO2 etCO2 NIBP (mmHg) Rhythm Pain Sedation Rate (ipm) (%) (mmHg) Status Level (bpm) 11:34:37 83 10 96 39.8 156/87(119) NSR 0 (11) 10(A) , No pain 11:38:53 77 13 96 53.2 120/69(101) NSR 0 (11) 10(A) , No pain 11:43:07 75 13 97 44.2 109/68(86) NSR 0 (11) 10(A) , No pain 11:47:15 75 12 96 23.2 118/71(88) NSR 0 (11) 10(A) , No pain 11:51:27 80 12 96 48.7 117/72(92) NSR 0 (11) 10(A) , No pain 11:55:39 75 11 97 44.2 116/71(98) NSR 0 (11) 10(A) , No pain 11:59:51 83 11 96 45 116/72(97) NSR 0 (11) 10(A) , No pain 12:04:03 74 12 97 44.2 116/67(83) NSR 0 (11) 10(A) , No pain 12:08:09 77 13 95 45.7 135/85(122) NSR 0 (11) 10(A) , No pain 12:12:23 80 12 95 51 141/89(117) NSR 0 (11) 10(A) , No pain 12:16:41 78 14 97 48.8 145/79(116) NSR 0 (11) 9(A) , No pain 12:21:01 79 15 96 48 139/77(106) NSR 0 (11) 9(A) , No pain 12:25:17 82 13 97 48.7 140/84(114) NSR 0 (11) 9(A) , No pain 12:29:33 79 13 99 37.5 138/80(113) NSR 0 (11) 9(A) , No pain 12:33:49 81 13 99 29.2 143/82(121) NSR 0 (11) 9(A) , No pain 12:38:03 86 13 98 24 142/81(113) NSR 0 (11) 10(A) , No pain 12:42:17 93 13 86 36.8 157/90(116) NSR 0 (11) 10(A) , No pain 12:46:31 87 12 97 35.2 143/93(124) NSR 0 (11) 10(A) , No pain Medications Time Medication Route Dose Verified Delivered Reason Notes Effectiveness by by 11:33:06 0.9% NaCl I.V. 100 Ye Allison used for ml/hr ZaidaIsmael Cantor procedure RN 11:33:12 Oxygen etCO2 2 Ye Allison used for Nasal l/min [facility] procedure cannula MD CHANEY 11:33:17 Lidocaine 2% added 20ml Ye Belcher for local to vial [facility] anesthetic field MD CASTILLO 11:33:21 Heparin Flush added 2 Ye Ye used for Bag to bags [facility] procedure (1000units/500ml field MD CASTILLO NS) 12:07:06 Versed I.V. 2 mg Ye Allison for sedation St Ismael Cantor MD RN 12:07:11 Fentanyl I.V. 50 Ye Allison for sedation mcg St Ismael Cantor MD RN 12:13:45 Fentanyl I.V. 50 Ye Allison for sedation mcg St Ismael Cantor MD RN 12:18:53 Heparin Bolus I.V. 5000 Ye Allison for verified units St Ismael Cnator antiplatelet with Dr. CASTILLO RN therapy Gre[place] 12:19:13 Integrilin I.V. 9 ml Ye Allison for (Bolus 2mg/ml) St Ismael Cantor antiplatelet RN therapy 12:19:25 Integrilin wasted 1 ml Ye Allison for (Bolus 2mg/ml) St Ismael Cantor antiplatelet RN therapy 12:19:31 Effient P.O. 60 mg Ye Allison for St Ismael Cantor antiplatelet RN therapy 12:27:25 Integrilin I.C. 9 ml Ye Ye for (Bolus 2mg/ml) [place] [facility] Guevara antiplatelet MD CASTILLO therapy 12:27:34 Integrilin wasted 1 ml Ye rivera (Bolus 2mg/ml) St Ismael Cantor antiplatelet RN therapy 12:35:49 Cardene I.C. 300 Ye Belcher for [facility]el Coleman MD, MD Procedure Log Time Note 11:00:14 Informed consent obtained and on chart 11:00:39 Procedure Status Urgent Heart Cath (IP). 11:00:40 Time tracking: Regular hours (M-F 7:00 - 5:00) 11:00:45 Plan of Care:Hemodynamics will remain stable., Cardiac rhythm will remain stable., Comfort level will be maintained., Respiratory function will remain adequate., Patient/ family verbilizes understanding of procedure., Procedure tolerated without complication., Recovers from procedure without complications.. 11:01:14 H&P Date Dictated: 08/18/2019 ER History on chart.. 11:01:29 Patient allergic to No known allergies 11:02:04 Lab Result : BUN 15 mg/dl 11:02:04 Lab Result : Creatinine 1 mg/dl 11:02:04 Lab Result : Hemoglobin 15 g/dl 11:02:04 Lab Result : eGFR NONAFRICAN 78 ml/min 11:02:04 Lab Result : Hematocrit 47.2 % 11:03:35 Patient Weight : 220 lbs 11:03:39 Patient Height : 73 inches 11:18:23 Esther Freed RT(R) sent for patient. Start room use. 11:32:55 Vital chart was started 11:33:06 0.9% NaCl 100 ml/hr I.V. was administered by Allison Cantor RN; used for procedure; Verbal order read back and verified. 11:33:12 Oxygen 2 l/min etCO2 Nasal cannula was administered by Allison Cantor RN ; used for procedure; Verbal order read back and verified. 11:33:17 Lidocaine 2% 20ml vial added to field was administered by Ye Cerda MD; for local anesthetic; Verbal order read back and verified. 11:33:21 Heparin Flush Bag (1000units/500ml NS) 2 bags added to field was administered by Ye Cerda MD; used for procedure; Verbal order read back and verified. 11:33:46 Patient received from Med II to CCL 1 Alert and oriented. Tansferred to table in Supine position. 11:33:48 Warm blankets applied, and goldy hugger turned on for patient comfort. 11:33:49 Correct patient and procedure confirmed by team. 11:33:49 ECG and BP/O2 sat monitors applied to patient. 11:34:03 Pre-procedure instructions explained to patient. 11:34:04 Pre-op teaching completed and patient verbalized understanding. 11:34:12 Baseline sample Acquired. 11:34:36 Rhythm: sinus rhythm 11:34:41 Family in waiting room. 11:34:44 Patient NPO since Midnight. 11:34:47 Is the patient allergic to Iodine/contrast media? No. 11:34:50 Was the patient premedicated? Yes 11:34:55 Is patient on blood thinner?Yes 11:35:00 ACC The patient was administered the following blood thiners within the last 24 hours: ACCPlavix 11:35:04 Patient diabetic? No. 11:35:12 Full Disclosure recording started 11:35:13 - 11:35:18 ----Pre-sedation anethsthesia assessment.---- 11:35:22 Previous problem with sedation/anesthesia? No ? 11:35:24 Snore? Yes 11:35:26 Sleep apnea? No 11:35:29 Deviated septum? Unknown 11:35:31 Opens mouth fully? Yes 11:35:34 Sticks out tongue? Yes 11:35:43 Airway obstruction? Yes COPD 11:35:51 Dentures? Yes IN TIGHT 11:36:00 Pre procedure: right dorsailis pedis pulse 1+ Palpable, but thready & weak; easily obliterated 11:36:16 IV patent on arrival in right wrist with 0.9% NaCl at O. 11:36:23 Lab results completed and on chart. 11:36:29 Stress Test: no; N/A ? 11:36:39 Right groin area was prepped with chlora-prep and draped in sterile fashion 11:36:41 Alarms reviewed by Rebecca Terrell. 11:36:42 Sharps counted by scrub and verified by R.N. 11:36:48 Use device set Femoral Dx 11:36:50 ACIST Syringe (72350) opened to sterile field. 11:36:50 Bag Decanter (2002S) opened to sterile field. 11:36:51 Medline Cath Pack ([id number]) opened to sterile field. 11:36:54 ACIST Hand Control (75230) opened to sterile field. 11:36:55 ACIST Manifold (07793) opened to sterile field. 11:36:59 DIAGNOSTIC Multipack 5Fr catheter set (GR4085) opened to sterile field. 11:37:01 SHEATH 5FR [place] (TIJ257) opened to sterile field. 11:37:02 EMERALD Guide Wire (781-984) opened to sterile field. 11:37:07 Tegaderm 4 x 4 (1626W) opened to sterile field. 11:37:27 Zero performed for pressure channel P1 11:40:27 Arrival Date: 08/19/2019 12:00:00 AM 11:44:40 Physician paged 11:50:28 Risk of Mortality: 0.4 11:50:33 Risk of blood transfusion: 0.2 11:50:37 Risk of ABDI: 1.3 12:05:00 Physician arrived 12:05:01 --------ALL STOP TIME OUT------ 12:05:04 Final Timeout: patient, procedure, and site verified with staff and physician. All members of the team are in agreement. 12:05:06 Right groin site verified by team. 12:05:12 Fire Safety Assessment: A--An alcohol-based skin anteseptic being used preoperatively., C--Open oxygen or nitrous oxide is being used., D--An ESU, laser, or fiber-optic light is being used. 12:05:20 Physical assessment completed. ASA score P 2 - A patient with mild systemic disease as per Ye Cerda MD. 12:05:27 2) 60-89 Mildly reduced kidney function, and other findings (as for stage 1) point to kidney disease. 12:05:36 Maximum allowable contrast dose (3.7 X eGFR X 0.75)216 ml. 12:05:45 Sedation plan: IV Moderate Sedation Medication:Versed, Fentanyl 12:06:45 Procedure started. 12:07:06 Versed 2 mg I.V. was administered by Allison Cantor RN; for sedation; Verbal order read back and verified. 12:07:11 Fentanyl 50 mcg I.V. was administered by Allison Cantor RN; for sedation ; Verbal order read back and verified. 12:09:29 Local anesthetic to right femoral artery with Lidocaine 2% by Ye Guevara MD.INITIAL ACCESS ONLY 12:09:45 A 5 Fr sheath was inserted into the Right Femoral artery 12:11:02 GLIDE WIRE ANGLE 260cm (GY2764) opened to sterile field. 12:11:03 TORQUE DEVICE PLASTIC .038 ( TD01) opened to sterile field. 12:11:15 A MULTIPACK 3DRC 5Fr catheter was advanced over the wire and used for Procedure. 12:11:29 GLIDEWIRE 260 wire advanced. 12:11:47 RCA angiography performed. 12:11:54 Injector settings: Ml/sec: 3, Volume: 6, 12:12:25 SVG to RCA angiography performed. 12:13:45 Fentanyl 50 mcg I.V. was administered by Allison Cantor RN; for sedation ; Verbal order read back and verified. 12:14:24 Catheter removed. 12:14:47 A DIAGNOSTIC AR2 MOD 5 Fr catheter ([id number]) was advanced over the wire and used for Procedure. 12:16:56 SVG to LAD angiography performed. 12:17:03 Injector settings: Ml/sec: 3, Volume: 6, 12:18:02 SVG to Circ occluded. 12:18:35 Catheter removed. 12:18:43 A MULTIPACK JL 4.0 5Fr catheter was advanced over the wire and used for Left Coronary Angiography. 12:18:53 Heparin Bolus 5000 units I.V. was administered by Allison Cantor RN; for antiplatelet therapy; verified with Dr. Batista Verbal order read back and verified. 12:19:13 Integrilin (Bolus 2mg/ml) 9 ml I.V. was administered by Allison Cantor RN; for antiplatelet therapy; Verbal order read back and verified. 12:19:25 Integrilin (Bolus 2mg/ml) 1 ml wasted was administered by Allison Cantor RN; for antiplatelet therapy; Verbal order read back and verified. 12:19:31 Effient 60 mg P.O. was administered by Allison Cantor RN; for antiplatelet therapy; Verbal order read back and verified. 12:20:21 LCA angiography performed. 12:20:28 Injector settings: Ml/sec: 3, Volume: 6, 12:20:30 Catheter removed. 12:20:36 A MULTIPACK Pigtail 5 Fr catheter was advanced over the wire and used for LV Angiography. 12:20:45 LV gram done using LOW 12:20:51 Injector settings: Ml/sec: 5, Volume: 15, 12:21:14 EF : 30 % 12:21:22 LV hemodynamics recorded. 12:21:26 Catheter removed. 12::27 Proceeding to intervention. 12:21:30 SHEATH 6FR [place] (OBW303) opened to sterile field. 12:21:32 INFLATOR Merit BasixCompak (DC4007) opened to sterile field. 12:21:34 WHISPER 300cm guide wire ([id number]) opened to sterile field. 12:21:35 GUIDE 6FR MB 1 catheter (LA6MB1) opened to sterile field. 12:21:48 Sheath upsized to a 6 Fr Short. 12:22:08 6 Fr MB1 guide catheter was inserted over the wire 12:22:34 Pre PCI Site: Vein Graft RCA has 90% stenosis. 12:22:38 ACC Pre-intervention GORDON Flow is 3. 12:27:25 Integrilin (Bolus 2mg/ml) 9 ml I.C. was administered by Ye Cerda MD; for antiplatelet therapy; Verbal order read back and verified. 12:27:34 Integrilin (Bolus 2mg/ml) 1 ml wasted was administered by Allison Cantor RN; for antiplatelet therapy; Verbal order read back and verified. 12:27:39 WHISPER 300 Wire advanced WITH BALLOON across lesion. 12:33:03 Inflate balloon Inflation number: 1 A EUPHORA 3.0 x 15 Balloon ([id number]) was prepped and advanced across the Aorta Right -> Dist RCA , then inflated to 10 MATT for 0:07 (min:sec) . 12:33:24 Inflation number: 2 The EUPHORA 3.0 x 15 Balloon ([id number]) was reinflated across the Aorta Right -> Dist RCA , to 10 MATT for 0:16 (min:sec) . 12:35:49 Cardene 300 mcg I.C. was administered by Ye Cerda MD; for vasodilation; Verbal order read back and verified. 12:39:54 Balloon removed over the wire. 12:39:55 Wire removed. 12:39:56 Guide catheter removed. 12:39:59 EXOSEAL 6Fr (EX600) opened to sterile field. 12:40:03 ACC Post-intervention GORDON Flow is 3. 12:40:13 Post PCI Site: Vein Graft RCA has 0% stenosis. 12:40:40 Sheath removed intact; hemostasis achieved with Exoseal to the Right Femoral artery. 12:40:43 Procedure ended.(Physican Out) 12:40:52 Contrast amount:Isovue 300 117ml. 12:41:00 Fluoroscopy time 08.10 minutes. 12:41:07 Flurop Dose total: 933 12:41:07 Fluoroscopy dose: 933 mGy 12:41:15 Dose Area Product 07150 mGy/cm. 12:41:21 Maximum allowable dose exceeded? No. 12:41:23 Sharps counted by scrub and verified by R.N. 12:41:28 Post-op/insertion site Right Femoral artery dressed using a 4 x 4 and Tegaderm. 12:41:34 Post-procedure physical assessment completed. ASA score P 2 - A patient with mild systemic disease as per Ye Cerda MD. 12:41:38 Post procedure rhythm: unchanged. 12:41:43 Estimated blood loss: 10 ml 12:41:45 Post procedure instruction explained to patient.Patient verbalizes understanding. 12:41:46 Patient needs reinforcement of post procedure teaching. 12:42:20 ACT drawn and resulted at 232 seconds. (normal therapeutic range 180-24 0 seconds). 12:44:42 Procedure type changed to Cath procedure, Diagnostic procedure, LHC, LH C w/Coronaries w/Grafts, Sedation Charges, Moderate Sedation up to 45 minutes, PCI procedure, PTCA, PTCA Initial, Hemochron ACT Test 12:44:52 Procedure and supply charges have been captured, reviewed, submitted an d are correct. 12:45:53 Procedure Complication : No complications 12:45:58 Vital chart was stopped 12:46:04 [facility] Findings: MVD- PCI performed (see procedure note) 12:46:06 Operative report dictated upon procedure completion. 12:46:07 See physician's report for complete and final results. 12:46:09 Report given to [facility]. 12:46:14 Patient transfered to [facility] with Bed. 12:46:18 Procedure ended. 12:46:18 Full Disclosure recording stopped 12:46:27 ACC-PCI Only Patient was given prescriptions, or instructed by Ye Cerda MD to start/continue the following medications upon discharge: Effient 12:46:29 End room use (Document Last) Intervention Summary Intervention Notes Time ActionType Lesion and Equipment Action# Pressure Duration Attributes Used 12:33:03 Inflate Aorta Right EUPHORA 1 10 00:07 balloon -> Dist RCA 3.0 x 15 Balloon ([id number]) 12:33:24 Reinflate Aorta Right EUPHORA 2 10 00:16 balloon -> Dist RCA 3.0 x 15 Balloon ([id number]) Device Usage Item Name Manufacture Quantity Catalog Hospital Part Current Minimal L ot# / Number Charge Number Stock Stock Serial# Code ACIST Acist 1 48860 903200 747603 488507 20 Syringe Medical (76103) Systems Inc Bag Microtek 1 2001S 006965 18651 174977 5 Decanter Medical Inc. () Medline Medline 1 [id number] 956810 27168 930733 5 Cath Pack ([id number]) ACIST Hand Acist 1 06643 163530 558906 503548 5 Control Medical (54751) Systems Inc ACIST Acist 1 62952 989470 492072 372156 5 Manifold Medical (87832) Systems Inc DIAGNOSTIC Cardinal 1 QP5629 728074 36091 621078 30 Multipack Health 5Fr catheter set (TS7354) SHEATH 5FR Terumo 1 OBF251 794980 219479 589980 5 [place] (BPF702) EMERALD Cardinal 1 502-455 945467 739464 114280 5 Guide Wire Health (502-455) Tegaderm 4 3M 1 1626W 131320 221112 141182 5 x 4 (1626W) GLIDE WIRE Terumo 1 IC3416 437066 647196 759153 5 ANGLE 260cm (SU4745) TORQUE Holloway 1 TD01 132237 357334 269342 5 DEVICE Scientific PLASTIC .038 ( TD01) MULTIPACK Cardinal 1 813071 5 3DRC 5Fr Health catheter DIAGNOSTIC Cardinal 1 149147C 222698 772399 471792 20 AR2 MOD 5 Health Fr catheter (492331G) MULTIPACK Cardinal 1 888716 5 JL 4.0 5Fr Health catheter MULTIPACK Cardinal 1 670079 5 Pigtail 5 Health Fr catheter SHEATH 6FR Terumo 1 SXW193 090880 253833 448793 40 [place] (OBZ744) INFLATOR Merit 1 SB4228 658513 006582 624862 15 Merit Medical BasixCompak (OZ3249) WHISPER Lombardi 1 [id number] 863890 811701 163818 5 300cm guide Vascular wire ([id number]) GUIDE 6FR Medtronic 1 LA6MB1 894535 08172 700100 1 MB 1 catheter (LA6MB1) EUPHORA 3.0 Medtronic 1 [id number] 682569 529737 207068 5 2 [id number] x 15 Balloon ([id number]) EXOSEAL 6Fr Cardinal 1 EX600 502159 582584 044181 10 (EX600) Health Signature Audit [place] Stage Time Signature Unsigned Intra-Procedure 08/19/2019 Lupe 12:46:51 PM Ruby RT(R) (CV) Intra-Procedure 08/19/2019 Allison Cantor 12:47:19 PM RN Intra-Procedure 08/19/2019 Ye Ospina 12:47:43 PM Ismael CASTILLO [id number] [place] [address]
[2019-08-18 13:54] LABS: BASOPHILS 0.5 % (0-2); EOSINOPHILS 2.5 % (0-7); HEMATOCRIT 48.1 % (42.0-54.0); HEMOGLOBIN 15.7 g/dL (13.5-17.5); IMMATURE GRANULOCYTES 0.1 % (0-5); LYMPHOCYTES 31.5 % (15-50); MCH 29.5 pg (26.0-34.0); MCHC 32.6 g/dL (31.0-37.0); MCV 90.2 fL (80.0-100.0); MEAN PLATELET VOLUME 9.9 fL (7.4-10.4); MONOCYTES 8.5 % (2-11); NEUTROPHILS 56.9 % (40-80); PLATELET COUNT 275 10x3/uL (130-400); RBC 5.33 10x6/uL (4.20-6.10); RDW 13.6 % (11.5-14.5); WBC 8.4 10x3/uL (4.8-10.8)
[2019-08-18 14:06] LABS: INR 0.98 (0.85-1.17)
[2019-08-18 14:18] LABS: CALC OSMOLALITY 278 mosm/kg (275-300); CALCIUM 8.6 mg/dL (8.5-10.1); CARBON DIOXIDE 31.9 mmol/L (21.0-32.0); CHLORIDE - SERUM 100 mmol/L (98-107); CREATININE - SERUM 1.1 mg/dL (0.6-1.3); GLUCOSE 126 mg/dL (74-106); POTASSIUM - SERUM 3.8 mmol/L (3.5-5.1); SODIUM 138 mmol/L (136-145); UREA NITROGEN 15 mg/dL (7-18); eGFR NON AFRICAN AMERICAN 70 mL/min (90-120)
[2019-08-18 14:39] LABS: ALBUMIN 3.8 g/dL (3.4-5.0); ALKALINE PHOSPHATASE 83 U/L (30-120); BILIRUBIN - TOTAL 0.41 mg/dL (0.2-1.3); CKMB 1.3 U/L (0.0-3.6); CREATINE KINASE 89 UL (21-232); MAGNESIUM - SERUM 1.9 mg/dL (1.8-2.4); PROTEIN - SERUM 7.2 g/dL (6.4-8.2)
[2019-08-18 15:14] LABS: ALT (SGPT) 1 U/L (10-68)
[2019-08-18 15:15] LABS: TROPONIN-I 0.094 ng/mL (0.000-0.060)
--- NOTE | 2019-08-18 16:53 | NUR ---
ATTEMPTED TO CALL REPORT, NURSE UNAVAILABLE
--- NOTE | 2019-08-18 17:23 | NUR ---
REPORT TO RITU OTOOLE
--- NOTE | 2019-08-18 17:25 | NUR ---
ADMIT TO ROOM # 2126, CONDITION STABLE
--- NOTE | 2019-08-18 17:52 | NUR ---
RECEIVED PT FROM ER. PT IS AAO AND UP AD MIGUEL. RR EVEN AND UNLABORED ON RA. NO S/S OF DISTRESS NOTED. NO CHEST PAIN NOTED. CALL LIGHT W/I REACH. PT DENIES ANY NEEDS AT THIS TIME. QUICKSTART, HISTORY, AND ASSESSMENT COMPLETE. TELEMETRY APPLIED. PIV SALINE LOCKED. WILL CTM.
[2019-08-18 18:24] LABS: ANION GAP 10.2 mmol/L (8-16); CALCIUM 8.5 mg/dL (8.5-10.1); CARBON DIOXIDE 32.7 mmol/L (21.0-32.0); CHOL - HDL RATIO 4.4 ratio (2.3-4.9); CREATININE - SERUM 1.1 mg/dL (0.6-1.3); LDL-HDL RATIO 2.5 ratio (1.5-3.5); POTASSIUM - SERUM 3.9 mmol/L (3.5-5.1)
--- NOTE | 2019-08-18 19:37 | NUR ---
SEVERAL NEEDS SEEN TO BED LOW AND LOCKED CALL LIGHT IN REACH DICUSSED PROCEDURE WITH PT FOR IN AM
--- NOTE | 2019-08-18 22:37 | NUR ---
PT HAD ASKED ME TO REMOVE NTG EARLIER INSISTED CO CP NOW AND MSO4 GIVEN IV AND NTG REPLACED
--- NOTE | 2019-08-18 22:49 | NUR ---
PT RANKING PAIN A 6 NTG SL BP CHECKED 130/42 PAIN DOWN TO A 3 WILL HOLD NTG FOR NOW
--- NOTE | 2019-08-18 22:59 | NUR ---
STATES CP IS ALL BUT GONE NOW
[2019-08-19] VITALS: BP 121/62
[2019-08-19 04:00] VITALS: BP 136/60
--- NOTE | 2019-08-19 05:14 | NUR ---
I have reviewed this patient and I concur with the Shift Assessment completed by the Licensed Practical Nurse today this shift.
[2019-08-19 06:19] LABS: BASOPHILS 0.4 % (0-2); EOSINOPHILS 3.6 % (0-7); HEMATOCRIT 47.2 % (42.0-54.0); IMMATURE GRANULOCYTES 0.3 % (0-5); LYMPHOCYTES 38.9 % (15-50); MCH 28.9 pg (26.0-34.0); MCHC 31.8 g/dL (31.0-37.0); MCV 90.9 fL (80.0-100.0); MEAN PLATELET VOLUME 10.2 fL (7.4-10.4); MONOCYTES 8.8 % (2-11); PLATELET COUNT 285 10x3/uL (130-400); RBC 5.19 10x6/uL (4.20-6.10); RDW 13.7 % (11.5-14.5); WBC 7.8 10x3/uL (4.8-10.8)
--- NOTE | 2019-08-19 06:51 | NUR ---
PT SUDDENLY FELT CP AGAIN MSO4 AND NTG GIVEN
[2019-08-19 07:00] LABS: ALBUMIN 3.4 g/dL (3.4-5.0); ALKALINE PHOSPHATASE 78 U/L (30-120); ALT (SGPT) 20 U/L (10-68); BILIRUBIN - TOTAL 0.38 mg/dL (0.2-1.3); CALC OSMOLALITY 285 mosm/kg (275-300); CALCIUM 8.8 mg/dL (8.5-10.1); CARBON DIOXIDE 32.8 mmol/L (21.0-32.0); CHLORIDE - SERUM 103 mmol/L (98-107); CKMB 1.2 U/L (0.0-3.6); CREATINE KINASE 71 UL (21-232); GLUCOSE 128 mg/dL (74-106); MAGNESIUM - SERUM 1.8 mg/dL (1.8-2.4); POTASSIUM - SERUM 3.8 mmol/L (3.5-5.1); PROTEIN - SERUM 6.7 g/dL (6.4-8.2); SODIUM 142 mmol/L (136-145); UREA NITROGEN 15 mg/dL (7-18); eGFR NON AFRICAN AMERICAN 78 mL/min (90-120)
[2019-08-19 07:03] LABS: TROPONIN-I 0.208 ng/mL (0.000-0.060)
--- NOTE | 2019-08-19 08:45 | MORECARE ---
CASE MANAGEMENT DISCHARGE SUMMARY PATIENT: JOSÉ MIGUEL SMITH UNIT: [id number] ADM DATE: 08/18/19 AGE: 68 : 46 SEX: M ROOM/BED: D.3827 AUTHOR: ANA MANDUJANO PHYSICIAN: REFERRING PHYSICIAN: LATOYA ADAMS MD DATE OF SERVICE: 08/19/19 Discharge Plan Patient Name: JOSÉ MIGUEL SMITH [facility] [facility] 1950 Planned Disposition: Anticipated Discharge Date: Discharge Date: Expected LOS: Initial Reviewer: [email or web address] Initial Review Date: 08/18/2019 Generated: 08/19/19 9:44 am Patient Name: JOSÉ MIGUEL SMITH Page [id number] at 0845 All edits/amendments must be made on the electronic document DICTATION DATE: 08/19/19 0844 MEAT AND SEAFOOD MANAGER: KATY 08/19/19 0844 RPT#: [id number] DC DATE: STATUS: ADM IN [facility] [address] [place] [address] END OF REPORT
[2019-08-19 10:01] VITALS: BP 106/70
--- NOTE | 2019-08-19 11:11 | NUR ---
PATIENT IS STABLE AND VSS. PATIENT DENIES ANY NEEDS OR PAIN. PER PHONE CALL FROM CRAYON PAINTER, PATIENT PRE OP GIVEN PER MAR ORDERS. PATIENT TOLERATED WELL. AT BS. WILL CONTINUE TO MONITOR. SR UP X 2 BED IN LOW POSITION AND CALL LIGHT IN REACH.
[2019-08-19 13:56] VITALS: Ht 190.5 cm; Wt 99.8 kg
--- NOTE | 2019-08-20 07:56 | NUR ---
CALLED WITH QUESTIONS REGARDING PT'S DISCHARGE MEDICATIONS. HE WAS GIVEN RX FOR EFFIENT PER DR PERRY AND TOLD TO STOP ANOTHER MEDICATION. I ADVISED THAT THE PLAVIX (CLOPIDOGREL) WAS TO BE DISCONTINUED. SHE REPORTS HAS NOT BEEN TAKING THAT ANYWAY.
--- NOTE | 2019-08-20 09:36 | MORECARE ---
CASE MANAGEMENT DISCHARGE SUMMARY PATIENT: JOSÉ MIGUEL SMITH UNIT: [id number] ADM DATE: 08/18/19 AGE: 68 : 48 SEX: M ROOM/BED: D.7388 AUTHOR: ANA MANDUJANO PHYSICIAN: REFERRING PHYSICIAN: LATOYA ADAMS MD DATE OF SERVICE: 08/20/19 Discharge Plan Patient Name: JOSÉ MIGUEL SMITH [facility] 1950 Planned Disposition: Anticipated Discharge Date: Discharge Date: 08/19/2019 Expected LOS: Initial Reviewer: [email or web address] Initial Review Date: 08/18/2019 Generated: 08/20/19 10:36 am Last DP export: 08/19/19 7:45 a Patient Name: JOSÉ MIGUEL SMITH Page [phone] at 0936 All edits/amendments must be made on the electronic document DICTATION DATE: 08/20/1936 CHISEL MORTISER OPERATOR: DM 08/20/19 0936 RPT#: [id number] DC DATE:08/19/19 STATUS: DIS IN [facility] [address] [place] [address] END OF REPORT
== END 2019-08-19 17:47 | disposition home or self-care (01) ==
LOC: D.ER 13:14 → D.M2 16:28 → OBSVTIME 16:57 → D.M2 08-19 17:47
PROVIDERS: Family Medicine; Internal Medicine Interventional Cardiology; ADMIT Family Medicine; ATTEND Family Medicine
DX: I25.110 Atherosclerotic heart disease of native coronary artery with unstable angina pectoris (principal); I21.4 Non-ST elevation (NSTEMI) myocardial infarction; I10 Essential (primary) hypertension; E78.5 Hyperlipidemia, unspecified; J43.9 Emphysema, unspecified; M19.90 Unspecified osteoarthritis, unspecified site

== ENCOUNTER 2019-11-21 11:44 | Day surgery (SDC) | payer OTHER ==
[~2019-11-21] VITALS: Ht 190.5 cm; Wt 100.0 kg
--- NOTE | ~2019-11-21 | HEMODYNAMI ---
PATIENT:JOSÉ MIGUEL SMITH MEDICAL RECORD: [id number] : 46 LOCATION:[facility] ADMISSION DATE: 11/21/19 Generatedon:11/21/201914:48 Patient name: JOSÉ MIGUEL SMITH Patient #: [id number] : 1950 Date of study: 11/21/2019 Page: Of Hemodynamic Procedure Report Patient Data Patient Demographics Procedure consent was obtained First Name: JOSÉ MIGUEL Gender: Male Last Name: LUIS : 1950 Middle Initial: NYDIA Age: 69 year(s) Patient #: [id number] Race: SSN: [id number] Additional ID: [id number] Contact details Address: [address] [place] [address] State: [facility]: [place] Zip code: [address] Past Medical History History of disease Date Diagnosis Comments CAD COPD Allergies: No known allergies Admission Admission Data Admission Date: 11/21/2019 Admission Time: 11:44 Arrival Date: 11/21/2019 Arrival Time: 0:00 Height (in.): 75 BSA: 2.29 (m2) Height (cm.): 190.5 BMI: 27.56 (kg/m2) Weight (lbs.): 220.46 Weight (kg.): 100 Lab Results Lab Result Date: 11/21/2019 Lab Result Time: 0:00 Biochemistry Name Units Result Min Max BUN mg/dl 25 --(----)-* 7 18 Creatinine mg/dl 1.1 --(--*-)-- 0.6 1.3 CBC Name Units Result Min Max Hematocrit % 47.5 --(-*--)-- 42 54 Hemoglobin g/dl 15.4 --(-*--)-- 13.5 17.5 Procedure Procedure Types Cath Procedure Diagnostic Procedure LHC LHC w/Coronaries w/Grafts Sedation Charges Moderate Sedation up to 45 minutes PCI Procedure PTCA PTCA Initial Procedure Description Procedure Date Procedure Date: 11/21/2019 Procedure Start Time: 13:55 Procedure End Time: 14:34 Procedure Staff Name Function Logan Velazquez MD Performing Physician Shelby Jacobs RT Monitor Keagan Beth RT Scrub Ally Stout RN Nurse Frida Simmons RT Project Manager/Team Coach Procedure Data Cath Procedure Fluoroscopy Diagnostic fluoroscopy Total fluoroscopy Time: time: 11.4 min 11.4 min Diagnostic fluoroscopy Total fluoroscopy dose: dose: 1443 mGy 1443 mGy Contrast Material Contrast Material Type Amount (ml) Isovue 300 133 Entry Location Entry Primary Successful Side Size Upsize Upsize Entry Closure Succe ssful Closure Location (Fr) 1 (Fr) 2 (Fr) Remarks Device Remarks Femoral Right 5 Fr 6 Fr Perclose artery Short ProGlide Estimated blood loss: 5 ml Diagnostic catheters Device Type Used For End Catheter Placement MULTIPACK JL 4.0 5Fr Left Coronary catheter Angiography DIAGNOSTIC AR MOD 5Fr Multi-vessel Catheter ([id number]) Angiography MULTIPACK Pigtail 5 Fr LV Angiography catheter Procedure Complications No complications Procedure Medications Medication Administration Route Dosage Oxygen etCO2 Nasal cannula 2 l/min Lidocaine 2% added to field 20 Heparin Flush Bag added to field 2 bags (1000units/500ml NS) 0.9% NaCl I.V. 100 ml/hr Versed I.V. 1 mg Fentanyl I.V. 50 mcg Versed I.V. 1 mg Fentanyl I.V. 50 mcg Heparin Bolus I.V. 91280 units Heparin Flush Bag added to field 1 bags (1000units/500ml NS) Fentanyl I.V. 50 mcg Hemodynamics Rest BSA: 2.29 (m2) HGB: 15.4 (g/dl) O2 Consumption: Estimated: 268.57 (ml/min) O2 Co nsumption indexed: Estimated:117.28 (ml/min/m) Heart Rate: 74 (bpm) Pressure Samples Time Site Value (mmHg) Purpose Heart Use Rate(bpm) 14:09 LV 139/-3,20 Snapshot 79 14:09 AO 137/63(95) Pullback 82 14:09 LV 139/0,20 Pullback 82 Gradients Valve Time Site 1 Site 2 Mean SEP/DFP Peak To Heart Use (mmHg) (sec/min) Peak Rate (mmHg) (bpm) Aortic 14:09 LV AO 20 13 2 82 139/0,20 137/63(95) Calculations Valve P-P Mean Valve Index Valve Source Name Gradient Area Flow (cm2) Aortic 2 20 2 20 Snapshots Pre Cath Intra NCS Post Cath Vital Signs Time Heart Resp SPO2 etCO2 NIBP (mmHg) Rhythm Pain Sedation Rate (ipm) (%) (mmHg) Status Level (bpm) 13:42:13 85 15 97 0 184/101(142) NSR 0 (11) 10(A) , No pain 13:46:42 80 11 99 46 160/92(131) NSR 0 (11) 10(A) , No pain 13:51:02 79 12 95 0 137/82(111) NSR 0 (11) 10(A) , No pain 13:55:16 75 13 95 40.7 138/77(120) NSR 0 (11) 10(A) , No pain 13:59:32 79 15 93 32.4 133/76(103) NSR 0 (11) 9(A) , No pain 14:03:48 83 12 94 32.4 144/86(104) NSR 0 (11) 9(A) , No pain 14:08:08 77 14 96 29.4 132/74(104) NSR 0 (11) 9(A) , No pain 14:12:16 80 11 97 6.7 132/85(102) NSR 0 (11) 9(A) , No pain 14:16:30 76 13 96 0.7 134/79(105) NSR 0 (11) 9(A) , No pain 14:20:50 82 14 95 11.3 141/74(95) NSR 0 (11) 9(A) , No pain 14:25:08 79 13 97 0 141/76(114) NSR 0 (11) 9(A) , No pain 14:29:34 78 14 96 36.9 139/66(107) NSR 0 (11) 9(A) , No pain 14:33:50 73 13 98 9 156/89(113) NSR 0 (11) 10(A) , No pain Medications Time Medication Route Dose Verified Delivered Reason Note s Effectiveness by by 13:49:53 Oxygen etCO2 2 Olgan Buffie used for Nasal l/min Kody Stout RN procedure cannula 13:50:03 Lidocaine 2% added 20ml Logan Buffie for local to vial Kody Stout RN anesthetic field 13:50:11 Heparin Flush added 2 bags Logan Buffie used for Bag to Kody Stout RN procedure (1000units/500ml field NS) 13:50:20 0.9% NaCl I.V. 100 Logan Buffie Per physician ml/hr Kody Stout RN 13:50:43 Versed I.V. 1 mg Logan Buffie for sedation Kody Stout RN 13:50:50 Fentanyl I.V. 50 mcg Logan Buffie for sedation Kody Stout RN 13:59:58 Versed I.V. 1 mg Logan Buffie for sedation Kody Stout RN 14:00:02 Fentanyl I.V. 50 mcg Logan Buffie for sedation Kody Stout RN 14:15:46 Heparin Bolus I.V. 10,000 Logan Buffie for veri fied units Kody Stout RN anticoagulation with dr velazquez 14:25:19 Heparin Flush added 1 bags Logan Buffie used for Bag to Kody Stout RN procedure (1000units/500ml field NS) 14:36:12 Fentanyl I.V. 50 mcg Logan Buffie for sedation for Kody Stout RN closure Procedure Log Time Note 13:30:33 Frida Simmons RT(R) sent for patient. Start room use. 13:32:53 Informed consent obtained and on chart 13:33:26 Procedure Status Elective Heart Cath (OP). 13:33:27 Time tracking: Regular hours (M-F 7:00 - 5:00) 13:33:31 Plan of Care:Hemodynamics will remain stable., Cardiac rhythm will remain stable., Comfort level will be maintained., Respiratory function will remain adequate., Patient/ family verbilizes understanding of procedure., Procedure tolerated without complication., Recovers from procedure without complications.. 13:33:43 H&P Date Dictated: 11/16/2019 Within 30 days and on chart., H&P Addendum completed by physician on day of procedure. (MUST COMPLETE FOR ALL OUTPATIENTS). 13:35:39 Patient allergic to No known allergies 13:37:32 Lab Result : BUN 25 mg/dl 13:37:32 Lab Result : Hemoglobin 15.4 g/dl 13:37:32 Lab Result : Creatinine 1.1 mg/dl 13:37:32 Lab Result : Hematocrit 47.5 % 13:37:52 Patient received from Pre/Post Procedure Room to CCL 1 Alert and oriented. Tansferred to table in Supine position. 13:37:53 Warm blankets applied, and goldy hugger turned on for patient comfort. 13:38:16 ECG and BP/O2 sat monitors applied to patient. 13:38:20 Pre-procedure instructions explained to patient. 13:38:20 Pre-op teaching completed and patient verbalized understanding. 13:38:23 Family unavailable. 13:38:24 Patient NPO since Midnight. 13:38:27 Is the patient allergic to Iodine/contrast media? No. 13:38:28 Is patient on blood thinner?Yes 13:38:32 ACC The patient was administered the following blood thiners within the last 24 hours: ACCEffient 13:38:34 Patient diabetic? No. 13:38:37 Previous problem with sedation/anesthesia? No ? 13:38:39 Snore? No 13:38:40 Sleep apnea? No 13:38:41 Deviated septum? No 13:38:42 Opens mouth fully? Yes 13:38:43 Sticks out tongue? Yes 13:38:45 Airway obstruction? No ? 13:38:50 Dentures? No ? 13:39:56 Pre procedure: right dorsailis pedis pulse 1+ Palpable, but thready & weak; easily obliterated 13:39:59 Patient pain scale 0/10 ?. 13:40:10 IV patent on arrival in left antecubital with 0.9% NaCl at [facility]. 13:40:12 Lab results completed and on chart. 13:40:54 Vital chart was started 13:41:32 Patient Weight : 220.46 lbs 13:41:36 Patient Height : 75 inches 13:41:40 Arrival Date: 11/21/2019 12:00:00 AM 13:41:56 Baseline sample Acquired. 13:41:59 Baseline sample Acquired. 13:42:05 Baseline sample Acquired. 13:42:11 Baseline sample Acquired. 13:42:16 Rhythm: sinus rhythm 13:42:17 Full Disclosure recording started 13:42:21 Right groin area was prepped with chlora-prep and draped in sterile fashion 13:42:22 Alarms reviewed by R. N. 13:42:22 Sharps counted by scrub and verified by R.N. 13:42:25 Use device set Femoral Dx 13:42:25 ACIST Syringe (77179) opened to sterile field. 13:42:26 Bag Decanter (2002S) opened to sterile field. 13:42:27 ACIST Hand Control (52165) opened to sterile field. 13:42:27 ACIST Manifold (56961) opened to sterile field. 13:42:28 Tegaderm 4 x 4 (1626W) opened to sterile field. 13:42:29 Medline Cath Pack ([id number]) opened to sterile field. 13:42:30 DIAGNOSTIC Multipack 5Fr catheter set (YS8718) opened to sterile field. 13:42:31 SHEATH 5FR Chase (MWF068) opened to sterile field. 13:42:32 EMERALD Guide Wire (400-091) opened to sterile field. 13:44:42 Physician arrived 13:44:42 --------ALL STOP TIME OUT------ 13:44:43 Final Timeout: patient, procedure, and site verified with staff and physician. All members of the team are in agreement. 13:44:45 Right groin site verified by team. 13:44:49 Fire Safety Assessment: A--An alcohol-based skin anteseptic being used preoperatively., C--Open oxygen or nitrous oxide is being used., D--An ESU, laser, or fiber-optic light is being used. 13:44:53 Physical assessment completed. ASA score P 2 - A patient with mild systemic disease as per Logan Velazquez MD. 13:45:01 2) 60-89 Mildly reduced kidney function, and other findings (as for stage 1) point to kidney disease. 13:45:24 Maximum allowable contrast dose (3.7 X eGFR X 0.75)194 ml. 13:45:28 Sedation plan: IV Moderate Sedation Medication:Versed, Fentanyl 13:49:53 Oxygen 2 l/min etCO2 Nasal cannula was administered by Ally Stout RN; used for procedure; Verbal order read back and verified. 13:50:03 Lidocaine 2% 20ml vial added to field was administered by Ally Stout RN; for local anesthetic; Verbal order read back and verified. 13:50:11 Heparin Flush Bag (1000units/500ml NS) 2 bags added to field was administered by Ally Stout RN; used for procedure; Verbal order read back and verified. 13:50:20 0.9% NaCl 100 ml/hr I.V. was administered by Ally Stout RN; Per physician; Verbal order read back and verified. 13:50:43 Versed 1 mg I.V. was administered by Ally Stout RN; for sedation; Verbal order read back and verified. 13:50:43 Zero performed for pressure channel P1 13:50:48 Zero performed for pressure channel P1 13:50:50 Fentanyl 50 mcg I.V. was administered by Ally Stout RN; for sedation; Verbal order read back and verified. 13:55:08 Procedure started. 13:55:11 Local anesthetic to right femoral artery with Lidocaine 2% by Logan Velazquez MD.INITIAL ACCESS ONLY 13:58:21 A 5 Fr sheath was inserted into the Right Femoral artery 13:58:46 A MULTIPACK JL 4.0 5Fr catheter was advanced over the wire and used for Left Coronary Angiography. 13:59:58 Versed 1 mg I.V. was administered by Ally Stout RN; for sedation; Verbal order read back and verified. 14:00:02 Fentanyl 50 mcg I.V. was administered by Ally Stout RN; for sedation; Verbal order read back and verified. 14:00:23 LCA angiography performed. 14:00:27 Injector settings: Ml/sec: 3, Volume: 6, 14:01:13 Catheter removed. 14:02:20 A DIAGNOSTIC AR MOD 5Fr Catheter ([id number]) was advanced over the wire and used for Multi-vessel Angiography. 14:04:27 SVG to LAD angiography performed. 14:07:17 SVG to RCA angiography performed. 14:07:49 SHEATH 6FR Chase (REN763) opened to sterile field. 14:07:50 INFLATOR Merit BasixCompak (HS4484) opened to sterile field. 14:07:50 TUBING High Pressure Extension Tubing (Kody) (SE2463V) opened to sterile field. 14:07:51 BMW 300cm Hughes 2 J wire (0697939C) opened to sterile field. 14:07:51 GUIDE 6FR RCB catheter (LA6RCB) opened to sterile field. 14:08:06 Catheter removed. 14:08:13 A MULTIPACK Pigtail 5 Fr catheter was advanced over the wire and used for LV Angiography. 14:09:22 LV hemodynamics recorded. 14:09:23 LV gram done using LOW 14:09:26 Injector settings: Ml/sec: 5, Volume: 15, 14:09:31 EF : 30 % 14:10:30 Catheter removed. 14:10:35 Proceeding to intervention. 14:10:43 Sheath upsized to a 6 Fr Short. 14:10:48 ACC Pre-intervention GORDON Flow is 2. 14:10:55 Pre PCI Site: Vein Graft mRCA has 100% stenosis. 14:11:02 6 Fr rcb guide catheter was inserted over the wire 14:15:23 bmw wire advanced. 14:15:24 Wire advanced across lesion. 14:15:46 Heparin Bolus 10,000 units I.V. was administered by Ally Stout RN; for anticoagulation; verified with dr velazquez Verbal order read back and verified. 14:18:22 Inflate balloon Inflation number: 1 A EUPHORA 2.5 x 20 Balloon ([id number]) was prepped and advanced across the Aorta Right -> Mid RCA 100, then inflated to 12 MATT for 0:10 (min:sec) . 14:20:16 Balloon removed over the wire. 14:20:33 BMW 300cm Hughes 2 J wire ([id number]) opened to sterile field. 14:21:07 Wire removed. 14:21:21 new BMW wire advanced 14:25:19 Heparin Flush Bag (1000units/500ml NS) 1 bags added to field was administered by Ally Stout RN; used for procedure; Verbal order read back and verified. 14:29:29 The EMERGE OTW 2.5 x 20 balloon ([id number]) was advanced and then removed because of failure to cross lesion 14:29:41 Balloon removed over the wire. 14:29:41 Wire removed. 14:30:28 ACC Post-intervention GORDON Flow is 2. 14:31:13 perclose used for procedure; no cost item 14:31:24 Sheath removed intact; hemostasis achieved with Perclose ProGlide to the Right Femoral artery. 14:32:16 Procedure ended.(Physican Out) 14:32:30 Fluoroscopy time 11.40 minutes. 14:32:35 Flurop Dose total: 1443 14:32:35 Fluoroscopy dose: 1443 mGy 14:32:41 Dose Area Product 51940 mGy/cm. 14:32:54 Contrast amount:Isovue 300 133ml. 14:32:56 Maximum allowable dose exceeded? No. 14:32:57 Sharps counted by scrub and verified by R.N. 14:33:01 Insertion/operative site no bleeding no hematoma. 14:33:04 Post-op/insertion site Right Femoral artery dressed using a 4 x 4 and Tegaderm. 14:33:08 Post Procedure Pulses reassessed and unchanged 14:33:11 Post procedure rhythm: unchanged. 14:33:17 Estimated blood loss: 5 ml 14:33:20 Post procedure instruction explained to patient.Patient verbalizes understanding. 14:33:20 Patient needs reinforcement of post procedure teaching. 14:34:21 ACT drawn and resulted at 303 seconds. (normal therapeutic range 180-240 seconds). 14:34:27 Procedure type changed to Cath procedure, Diagnostic procedure, LHC, LHC w/Coronaries w/Grafts, Sedation Charges, Moderate Sedation up to 45 minutes, PCI procedure, PTCA, PTCA Initial 14:34:28 Procedure and supply charges have been captured, reviewed, submitted and are correct. 14:34:32 Procedure Complication : No complications 14:34:35 Vital chart was stopped 14:34:37 [facility] Findings: MVD- PCI performed (see procedure note) 14:34:39 Operative report dictated upon procedure completion. 14:34:40 See physician's report for complete and final results. 14:34:43 Report given to Pre/Post Procedure Room. 14:34:47 Patient transfered to Pre/Post Procedure Room with Stretcher. 14:34:49 Procedure ended. 14:34:49 Full Disclosure recording stopped 14:35:04 ACC-PCI Only Patient was given prescriptions, or instructed by Logan Velazquez MD to start/continue the following medications upon discharge: Effient 14:35:06 End room use (Document Last) 14:36:12 Fentanyl 50 mcg I.V. was administered by Ally Stout RN; for sedation; for closure Verbal order read back and verified. Intervention Summary Intervention Notes Time ActionType Lesion and Equipment Action# Pressure Duration Attributes Used 14:18:22 Inflate Aorta Right EUPHORA 2.5 1 12 00:10 balloon -> Mid RCA x 20 Balloon ([id number]) 14:29:29 Discard EMERGE OTW Balloon 2.5 x 20 balloon ([id number]) Device Usage Item Name Manufacture Quantity Catalog Number Hospital Part Current Min imal Lot# / Charge Number Stock Stock Serial# Code ACIST Acist 1 18231 390382 300295 824712 20 Syringe Medical (25134) Systems Inc Bag Decanter Microtek 1 2001S 301293 39523 069494 5 (2001S) Medical Inc. ACIST Hand Acist 1 01022 269293 357833 952697 5 Control Medical (79611) Systems Inc ACIST Acist 1 51814 968657 635826 311676 5 Manifold Medical (92056) Systems Inc Tegaderm 4 x 3M 1 1626W 582898 362582 152135 5 4 (1626W) Medline Cath Medline 1 [id number] 054024 82020 860145 5 Pack ([id number]) DIAGNOSTIC Cardinal 1 AX4475 990619 27480 787407 30 MultipRawFlow 5Fr catheter set (RN8027) SHEATH 5FR Terumo 1 JAO845 388570 210842 378927 5 Chase (WOA745) EMERALD Cardinal 1 502-455 835339 211440 665448 5 Guide Wire Health (502-455) MULTIPACK JL Cardinal 1 791787 5 4.0 5Fr Health catheter DIAGNOSTIC Cardinal 1 053056Y 605901 297192 365117 15 AR MOD 5Fr Health Catheter (532433Y) SHEATH 6FR Terumo 1 MRW551 800588 043779 440170 40 Chase (UEK919) INFLATOR Merit 1 BI4490 564245 493496 018804 15 Innogenetics Medical BasixCompak (YL0555) TUBING High Merit 1 JM0970G 756551 60186 872763 10 Pressure Medical Extension Tubing (Velazquez) ([id number]) BMW 300cm Lombardi 2 [id number] 618067 068592 615427 5 Hughes 2 Vascular J wire (7647307M) GUIDE 6FR Medtronic 1 LA6RCB 590154 90707 997753 1 RCB catheter (LA6RCB) MULTIPACK Cardinal 1 601519 5 Pigtail 5 Fr Health catheter EUPHORA 2.5 Medtronic 1 [id number] 166134 205084 736669 5 [id number] x 20 Balloon ([id number]) EMERGE OTW Emmett 1 [id number] 512485 352746 289847 5 [id number] 2.5 x 20 Scientific balloon ([id number]) Signature Audit [place] Stage Time Signature Unsigned Intra-Procedure 11/21/2019 Shelby Jacobs 2:48:12 PM RT(R) Intra-Procedure 11/21/2019 Ally Stout RN 2:48:35 PM Intra-Procedure 11/21/2019 Logan Velazquez MD 2:48:54 PM [facility] [address] [facility] [place] [address]
[2019-11-21] MEDS ORDERED: NEURONTIN600 MG PO (12:00)
[2019-11-21] MEDS ORDERED: PROZAC20 MG PO (12:01)
[2019-11-21] MEDS ORDERED: EFFEXOR37.5 MG PO (12:01)
[2019-11-21] MEDS ORDERED: LISINOPRIL-HCT1 EAC7 PO (12:02)
[2019-11-21] MEDS ORDERED: EFFIENT10 MG PO (12:05)
[2019-11-21] MEDS ORDERED: HYDROCODON-ACE1 EA10 PO (12:06)
[2019-11-21] MEDS ORDERED: BACLOFEN20 M1 PO (12:06)
[2019-11-21] MEDS ORDERED: BREO ELLIPTA 21 EACH (12:07)
[2019-11-21] MEDS ORDERED: ALEVE220 MG PO (12:07)
[2019-11-21] MEDS ORDERED: VENTOLIN HFA [SP8 GM INH (12:08)
[2019-11-21 12:14] VITALS: BP 150/78; Ht 190.5 cm; Wt 100.0 kg
[2019-11-21 12:36] LABS: ANION GAP 11.5 mmol/L (8-16); CALCIUM 9.3 mg/dL (8.5-10.1); CARBON DIOXIDE 29.7 mmol/L (21.0-32.0); CHOL - HDL RATIO 4.4 ratio (2.3-4.9); CREATININE - SERUM 1.1 mg/dL (0.6-1.3); LDL-HDL RATIO 2.8 ratio (1.5-3.5); POTASSIUM - SERUM 4.2 mmol/L (3.5-5.1)
[2019-11-21 13:06] LABS: BASOPHILS 0.5 % (0-2); EOSINOPHILS 2.9 % (0-7); HEMATOCRIT 47.5 % (42.0-54.0); HEMOGLOBIN 15.4 g/dL (13.5-17.5); IMMATURE GRANULOCYTES 0.1 % (0-5); LYMPHOCYTES 34.6 % (15-50); MCH 29.6 pg (26.0-34.0); MCHC 32.4 g/dL (31.0-37.0); MCV 91.2 fL (80.0-100.0); MEAN PLATELET VOLUME 10.1 fL (7.4-10.4); MONOCYTES 7.3 % (2-11); NEUTROPHILS 54.6 % (40-80); PLATELET COUNT 284 10x3/uL (130-400); RBC 5.21 10x6/uL (4.20-6.10); RDW 13.8 % (11.5-14.5); WBC 7.7 10x3/uL (4.8-10.8)
--- NOTE | 2019-11-21 15:08 | NUR ---
PT RECEIVED VIA STRETCHER FROM HYDROELECTRIC PLANT OPERATOR FOR RECOVERY. PT AWAKE BUT DROWSY, DENIES CHEST PAIN OR DISCOMFORT. IV PATENT INFUSING VIA ORDERS. PT PLACED ON CARDIAC MONITORS AND O2 VIA NC AT 2L. HR NSR RATE 77, BP 148/75, RR 12, SAT 95. R GROIN W FEMOSTOP IN PLACE, PRESSURE AT 108. PERCLOSE SUTURE WAS DONE, SOME OOZING IN HYDROELECTRIC PLANT OPERATOR IS WHY FEMOSTOP WAS PLACE. LEG PINK AND WARM, PEDAL PULSES AUDIBLE. PT INSTRUCTED TO KEEP LEG STRAIGHT AND HEAD FLAT, HE VERBALIZED UNDERSTANDING. CALL LIGHT IN REACH, AT BS.
--- NOTE | 2019-11-21 15:30 | NUR ---
DR HOPPER AT , SPOKE WITH PT AND REGARDING PLAN OF CARE AND PROCEDURE RESULTS. ORDERS REC'D FOR RANEXA 500 BID, WILL CALL PRESCRIPTION IN. PRESSURE RELEASED FROM FEMOSTOP, NO BLEEDING OR OOZING NOTED. WILL CONTINUE TO MONITOR. VSS AT PRESENT. PT DENIES PAIN OR NEEDS, CALL LIGHT IN RECH
[2019-11-21] MEDS ORDERED: RANEXA500 MG PO (15:31)
--- NOTE | 2019-11-21 16:04 | NUR ---
FEMOSTOP REMOVED, NO BLEEDING OR S/S HEMATOMA. 4X4 AND LG TEGADERM DRESSING APPLIED. HOB ELEVATED SLIGHTLY. PT NEEDING URINAL, PLACED. CALL LIGHT IN REACH WILL CALL WHEN FINISHED. AT BS
--- NOTE | 2019-11-21 16:33 | NUR ---
PT UNABLE TO VOID IN A URINAL AT THIS POINT. DR HOPPER NOTIFIED DOES NOT WANT HIM UP TO BR UNTIL BR COMPLETE. PT WILL KEEP TRYING. VSS. R GROIN SOFT, NO S/S BLEEDING. CALL LIGHT IN REACH. PT TOLERATED PO FOOD AND FLUIDS.
--- NOTE | 2019-11-21 17:00 | NUR ---
R GROIN SOFT, NO S/S BLEEDING. CALL LIGHT IN REACH, REMAINS AT BS
--- NOTE | 2019-11-21 17:30 | NUR ---
PT RESTING COMFORTABLY, WATCHING TV. R GROIN SOFT, NO S/S BLEEDING. VSS. CALL LIGHT IN REACH. PT DENIES NEEDS AT THIS TIME
--- NOTE | 2019-11-21 18:02 | NUR ---
GROIN REMAINS SOFT, NO S/S BLEEDING. VSS. CALL LIGHT IN REACH, AT BS
--- NOTE | 2019-11-21 18:18 | NUR ---
DISCHARGE INSTRUCTIONS REVIEWED W PT AND , BOTH VERBALIZED UNDERSTANDING. EXPLAINED TO MARKET MAKER RANEXA FROM PHARMACY AND BEGIN TAKING TOMORROW. IV REMOVED WITH CATH INTACT, MONITORS REMOVED. PT AMBULATED TO BR, VOIDING W/O DIFFICULITY.
--- NOTE | 2019-11-21 18:29 | NUR ---
PT DISCHARGED VIA WC TO WAITING IN PRIVATE VEHICLE. PT HAD ALL BELONGINGS AND DISCHARGE PAPERWORK
== END 2019-11-21 18:30 | disposition home or self-care (01) ==
LOC: D.CATH 11:44
PROVIDERS: ATTEND Internal Medicine Cardiovascular Disease
DX: I20.0 Unstable angina (principal); I25.110 Atherosclerotic heart disease of native coronary artery with unstable angina pectoris; E78.5 Hyperlipidemia, unspecified; I10 Essential (primary) hypertension

== ENCOUNTER 2020-07-19 09:11 | Emergency (ER) | payer MEDICARE ==
[~2020-07-19] VITALS: Ht 190.5 cm; Wt 101.4 kg
[~2020-07-19 09:11] MED LIST changes: +ALEVE220 MG PO; +BACLOFEN20 M1 PO; +BREO ELLIPTA 21 EACH; +EFFEXOR37.5 MG PO; +EFFIENT10 MG PO; +HYDROCODON-ACE1 EA10 PO; +LISINOPRIL-HCT1 EAC7 PO; +NEURONTIN600 MG PO; +PROZAC20 MG PO; +RANEXA500 MG PO; +VENTOLIN HFA [SP8 GM INH
[2020-07-19 09:18] VITALS: Ht 190.5 cm; Wt 101.4 kg
[2020-07-19] MEDS ORDERED: MORPHINE SULFAT15 M4 PO (09:40)
[2020-07-19 09:41] LABS: BASOPHILS 0.8 % (0-2); HEMATOCRIT 48.1 % (42.0-54.0); HEMOGLOBIN 16.2 g/dL (13.5-17.5); LYMPHOCYTES 21.4 % (15-50); MCHC 33.7 g/dL (31.0-37.0); MCV 86.2 fL (80.0-100.0); MEAN PLATELET VOLUME 8.1 fL (7.4-10.4); MONOCYTES 7.6 % (2-11); NEUTROPHILS 68.2 % (40-80); PLATELET COUNT 292 10x3/uL (130-400); RBC 5.59 10x6/uL (4.20-6.10); RDW 13.6 % (11.5-14.5); WBC 10.7 10x3/uL (4.8-10.8)
[2020-07-19] MEDS ORDERED: ISOSORBIDE DINI30 MG PO (09:41)
[2020-07-19] MEDS ORDERED: CRESTOR40 MG PO (09:43)
[2020-07-19 09:57] LABS: CALC OSMOLALITY 273 mosm/kg (275-300); CALCIUM 9.3 mg/dL (8.5-10.1); CARBON DIOXIDE 29.7 mmol/L (21.0-32.0); CHLORIDE - SERUM 99 mmol/L (98-107); CREATININE - SERUM 1.1 mg/dL (0.6-1.3); GLUCOSE 134 mg/dL (74-106); POTASSIUM - SERUM 3.8 mmol/L (3.5-5.1); SODIUM 135 mmol/L (136-145); UREA NITROGEN 17 mg/dL (7-18); eGFR NON AFRICAN AMERICAN 70 mL/min (90-120)
[2020-07-19 10:07] LABS: ALBUMIN 4.1 g/dL (3.4-5.0); ALKALINE PHOSPHATASE 86 U/L (30-120); ALT (SGPT) 22 U/L (10-68); AMYLASE - SERUM 43 U/L (25-115); BILIRUBIN - TOTAL 0.59 mg/dL (0.2-1.3); LIPASE 57 U/L (73-393); PROTEIN - SERUM 7.2 g/dL (6.4-8.2); TROPONIN-I < 0.017 ng/mL (0.000-0.060)
[2020-07-19] MEDS ORDERED: ZOFRAN4 MG PO (13:18)
[2020-07-19 13:35] VITALS: BP 99/56
== END 2020-07-19 13:37 | disposition home or self-care (01) ==
LOC: D.ER 09:11
PROVIDERS: Emergency Medicine
DX: M54.9 Dorsalgia, unspecified (principal); R10.13 Epigastric pain; R11.0 Nausea; G89.29 Other chronic pain; J44.9 Chronic obstructive pulmonary disease, unspecified; Z95.0 Presence of cardiac pacemaker